=== PATIENT | female | born 1950 | race Caucasian/White ===

== ENCOUNTER → 2018-09-06 | Outpatient (CLI) | payer MEDICARE, BC ==
[2018-09-07 02:42] LABS: Anion Gap 5.4 mmol/L (4.00-12.00); Carbon Dioxide 30.6 mmol/L (21.6-31.8); Magnesium 1.9 mg/dL (1.5-2.4); Potassium 5.4 mmol/L (3.5-5.5)
== END | disposition home or self-care (01) ==
LOC: LABWHC1 15:32
PROVIDERS: ATTEND Internal Medicine Cardiovascular Disease
DX: I48.3 Typical atrial flutter (principal)
CPT/HCPCS: 36415; 80051; 82565; 83735; 84520

== ENCOUNTER 2021-07-03 01:06 | Inpatient (IN) | payer BC, MEDICARE ==
[2021-07-03] MEDS ORDERED: MORPHINE SULFATE 4 MG/ML SYRINGE IM STA (01:52)
--- NOTE | 2021-07-03 02:22 | XR ---
EXAMINATION TYPE: XR Hip LT and AP Pelvis DATE OF EXAM: 07/03/2021 COMPARISON: NONE HISTORY: Left hip pain TECHNIQUE: 4 views FINDINGS: Pelvic ring is intact. There is bilateral hip prosthesis. I see no fracture nor dislocation . Sacroiliac joints are intact. There is some bony reactive changes around the medial aspect of the l eft acetabular component. Proximal left femur is intact. IMPRESSION: No fracture seen. There is some mild reactive changes suggestive of developing protrusio the prosthetic left acetabulum.
[2021-07-03] MEDS ORDERED: HYDROmorphone 0.5 MG/0.5 ML SYRINGE IM STA (03:30)
[2021-07-03 05:21] LABS: Basophils # (A) 0.1 k/uL (0-0.2); Basophils % (A) 2 %; Eosinophils # (A) 0.2 k/uL (0-0.7); Eosinophils % (A) 3 %; HCT 41.6 % (34.0-46.0); HGB 14.2 gm/dL (11.4-16.0); Lymphocytes # (A) 3.6 k/uL (1.0-4.8); Lymphocytes % (A) 53 %; MCH 35.3 pg (25.0-35.0); MCV 103.8 fL (80.0-100.0); Macrocytosis Slight; Mean Platelet Volume 7.8; Monocytes # (A) 0.6 k/uL (0-1.0); Monocytes % (A) 9 %; Neutrophils # (A) 2.1 k/uL (1.3-7.7); Neutrophils % (A) 30 %; Platelet Count 319 k/uL (150-450); RBC 4.01 m/uL (3.80-5.40); WBC 6.8 k/uL (3.8-10.6)
[2021-07-03 05:37] LABS: African American GFR (CKD) >90 (>60 ml/min/1.73 sqM); Anion Gap 7 mmol/L; Blood Urea Nitrogen 11 mg/dL (7-17); C Reactive Protein <0.5 mg/dL (<1.0); Calcium 9.4 mg/dL (8.4-10.2); Carbon Dioxide 28 mmol/L (22-30); Chloride 102 mmol/L (98-107); Glucose 116 mg/dL (74-99); Non-African American GFR(CKD) >90 (>60 ml/min/1.73 sqM); Potassium 4.3 mmol/L (3.5-5.1); Sodium 137 mmol/L (137-145)
[2021-07-03] MEDS ORDERED: ACETAMINOPHEN TAB 325 MG TAB PO PRN (06:32)
[2021-07-03] MEDS ORDERED: NALOXONE 0.4 MG/ML 1 ML VIAL IV PRN (06:32)
[2021-07-03] MEDS ORDERED: HYDROmorphone 0.5 MG/0.5 ML SYRINGE IVP PRN (06:32)
--- NOTE | 2021-07-03 07:41 | ED ---
Lower Extremity Injury HPI - General Chief Complaint: Extremity Injury, Lower Stated Complaint: Left hip pain Time Seen by Provider: 07/03/21 01:10 Source: patient Mode of arrival: wheelchair Limitations: no limitations - History of Present Illness Initial Comments: this patient is 71-year-old woman who presents to be evaluated for left hip pain. She indicates pain over the lateral aspect and also the anterior toward the groin. She states that the pain is severe when she attempts to stand or ambulate. When she is lying the pain is barely notable. She states she has had previous hip replacement but that her orthopedic surgeon has retired now. Patient does not recall having a fall or other injury. No pain into the abdomen MD Complaint: hip injury -: hour(s) Injury: Hip: Left Place: home Severity: moderate Improves With: immobilization, rest Worsens With: weight bearing, movement - Related Data Home Medications Medication Instructions Recorded Confirmed ALPRAZolam [Xanax] 0.25 mg PO BID PRN 07/03/21 07/03/21 Acetaminophen-Codeine 300-30mg 1 tab PO Q6H PRN 07/03/21 07/03/21 [Tylenol w/codeine #3] Aspirin EC [Ecotrin Low Dose] 81 mg PO DAILY 07/03/21 07/03/21 Atorvastatin Calcium [Lipitor] 10 mg PO DAILY 07/03/21 07/03/21 Cyclobenzaprine [Flexeril] 10 mg PO BID PRN 07/03/21 07/03/21 Ferrous Sulfate [Iron (65 MG 325 mg PO DAILY 07/03/21 07/03/21 Elemental)] Gemfibrozil [Lopid] 600 mg PO AC-BID 07/03/21 07/03/21 Levothyroxine Sodium [Synthroid] 125 mcg PO DAILY 07/03/21 07/03/21 Losartan [Cozaar] 50 mg PO DAILY 07/03/21 07/03/21 Metoprolol Succinate (ER) [Toprol 50 mg PO DAILY 07/03/21 07/03/21 XL] Omeprazole [PriLOSEC] 20 mg PO DAILY 07/03/21 07/03/21 Sodium Bicarbonate Tab 650 mg PO BID 07/03/21 07/03/21 Tocilizumab [Actemra] 162 mg SQ Q14D 07/03/21 07/03/21 sulfaSALAzine [Sulfasalazine] 1,000 mg PO BID 07/03/21 07/03/21 Previous Rx's Medication Instructions Recorded predniSONE 5 mg PO DAILY #0 07/05/21 predniSONE [Deltasone] 20 mg PO DAILY #11 tab 07/05/21 Allergies Allergy/AdvReac Type Severity Reaction Status Date / Time No Known Allergies Allergy Verified 07/03/21 07:07 Review of Systems ROS Statement: Those systems with pertinent positive or pertinent negative responses have been documented in the HPI. ROS Other: All systems not noted in ROS Statement are negative. Constitutional: Denies: fever, chills, weakness Respiratory: Denies: cough, dyspnea Cardiovascular: Denies: chest pain, palpitations, edema Gastrointestinal: Denies: abdominal pain, vomiting, diarrhea, constipation Genitourinary: Denies: dysuria, frequency, hematuria Musculoskeletal: Reports: as per HPI, arthralgia. Denies: back pain, myalgia Skin: Denies: lesions Neurological: Denies: headache, weakness, numbness Past Medical History - Past Family History Mother Family Medical History: Cancer Additional Family Medical History / Comment(s): breast cancer with mets to the brain Father Family Medical History: Congestive Heart Failure (CHF), Myocardial Infarction ([place]) General Exam Limitations: no limitations General appearance: alert, in no apparent distress Head exam: Present: atraumatic, normocephalic Eye exam: Present: normal appearance. Absent: scleral icterus, conjunctival injection Neck exam: Present: normal inspection Respiratory exam: Present: normal lung sounds bilaterally. Absent: respiratory distress, wheezes, rales, rhonchi, stridor Cardiovascular Exam: Present: regular rate, normal rhythm, normal heart sounds. Absent: systolic murmur, diastolic murmur, rubs, gallop GI/Abdominal exam: Present: soft. Absent: distended, tenderness, guarding, rebound, rigid, mass Extremities exam: Present: normal inspection, full ROM, tenderness, normal c apillary refill. Absent: pedal edema, calf tenderness Left Hip exam: Present: full ROM, tenderness (tenderness over the lateral). Absent: swelling, abrasion, laceration, ecchymosis, deformity, crepitus, dislocation, erythema, external rotation, internal rotation Upper Leg exam: Present: normal inspection, full ROM. Absent: tenderness, swell ing Knee exam: Present: normal inspection, full ROM. Absent: tenderness, swelling Lower Leg exam: Present: normal inspection, full ROM. Absent: tenderness, swelling Ankle exam: Present: normal inspection, full ROM. Absent: tenderness, swelling Neurovascular tendon exam: Present: no vascular compromise. Absent: pulse deficit, abnormal cap refill, motor deficit, sensory deficit Back exam: Present: normal inspection. Absent: CVA tenderness (R), CVA tenderness (L) Neurological exam: Present: alert. Absent: motor sensory deficit Skin exam: Present: warm, dry, intact, normal color. Absent: rash Course Vital Signs 07/03/21 07/03/21 07/03/21 01:09 03:50 07:23 Temperature 98.2 F 98.4 F Pulse Rate 96 78 77 Respiratory 18 18 16 Rate Blood Pressure 152/81 120/78 118/69 O2 Sat by Pulse 94 L 96 95 Oximetry 07/03/21 07/03/21 10:25 11:30 Temperature Pulse Rate 78 87 Respiratory 18 18 Rate Blood Pressure 134/75 131/75 O2 Sat by Pulse 95 95 Oximetry Medical Decision Making - Medical Decision Making this patient is 71-year-old woman with left hip pain. She does not recall injury. The patient is not able to bear weight or ambulate was in the department. She does have good range of motion with passive range of motion of the hip. The patient is sent for x-ray which reveals some prominence of the hardware. In light of this will admit patient with orthopedic consult - Lab Data Result diagrams: 07/03/21 05:06 07/03/21 05:06 Lab Results 07/03/21 07/03/21 07/03/21 Range/Units 05:06 05:06 07:25 WBC 6.8 (3.8-10.6) k/uL RBC 4.01 (3.80-5.40) m/uL Hgb 14.2 (11.4-16.0) gm/dL Hct 41.6 (34.0-46.0) % MCV 103.8 H (80.0-100.0) fL MCH 35.3 H (25.0-35.0) pg MCHC 34.0 (31.0-37.0) g/dL RDW 13.0 (11.5-15.5) % Plt Count 319 (150-450) k/uL MPV 7.8 Neutrophils % 30 % Lymphocytes % 53 % Monocytes % 9 % Eosinophils % 3 % Basophils % 2 % Neutrophils # 2.1 (1.3-7.7) k/uL Lymphocytes # 3.6 (1.0-4.8) k/uL Monocytes # 0.6 (0-1.0) k/uL Eosinophils # 0.2 (0-0.7) k/uL Basophils # 0.1 (0-0.2) k/uL Macrocytosis Slight Sodium 137 (137-145) mmol/L Potassium 4.3 (3.5-5.1) mmol/L Chloride 102 (98-107) mmol/L Carbon Dioxide 28 (22-30) mmol/L Anion Gap 7 mmol/L BUN 11 (7-17) mg/dL Creatinine 0.56 (0.52-1.04) mg/dL Est GFR (CKD-EPI)AfAm >90 (>60 ml/min/1.73 sqM) Est GFR (CKD-EPI)NonAf >90 (>60 ml/min/1.73 sqM) Glucose 116 H (74-99) mg/dL Calcium 9.4 (8.4-10.2) mg/dL C-Reactive Protein <0.5 (<1.0) mg/dL Coronavirus (PCR) Not Detected (Not Detectd) Disposition Clinical Impression: Hip pain Disposition: ADMITTED IP TO THIS HOSP Condition: Good Is patient prescribed a controlled substance at d/c from ED?: No
[2021-07-03] MEDS: MORPHINE SULFATE 4 MG/ML SYRINGE IV PRN ×3 (08:22→20:33)
[2021-07-03] MEDS ORDERED: CYCLOBENZAPRINE 10 MG TAB PO PRN (10:48)
[2021-07-03] MEDS ORDERED: Acetaminophen-Codeine 300-30mg TAB PO PRN (10:48)
[2021-07-03] MEDS ORDERED: ALPRAZolam 0.25 MG TAB PO PRN (10:48)
[2021-07-03] MEDS: LOSARTAN 50 MG TAB PO SCH (11:33)
[2021-07-03] MEDS: METOPROLOL SUCCINATE (ER) 50 MG TAB.ER.24H PO SCH (11:33)
[2021-07-03] MEDS: predniSONE 5 MG TAB PO SCH (11:33)
[2021-07-03] MEDS: sulfaSALAzine 500 MG TAB PO SCH ×2 (11:34→20:29)
--- NOTE | 2021-07-03 12:50 | P.HPIM ---
History of Present Illness H&P Date: 07/03/21 Chief Complaint: Severe left hip pain, debility, possible malfunction of the hardware left t HISTORY OF PRESENT ILLNESS 70-year-old female one of my office patient with known for over 15 years with past medical history of rheumatoid arthritis, hypertension, hyperlipidemia, hypothyroidism, chronic pain syndrome and chronic anemia who has not been in the hospital and long time had multiple orthopedic surgeon the past including bilateral total knee arthroplasty bilateral total hip arthroplasty. She had her left total hip done years ago with Dr. Melvin Nguyen orthopedic surgeon to retired from [employer] and [facility] [place] last 3 years. She has been doing well all along until yesterday late afternoon when developed to have severe debilitated not been able to move her leg are present any pressure on it. Patient family ended up coming to help her not been able to move or put pressure on the hip with no indication of trauma ended up calling 911 and patient was transported to the hospital via EMS. Her plain x-ray showed no fracture but mild reactive changes suggestive of developing protrusion of the prostatic left acetabulum. With the debility she had patient will be admitted will be seen orthopedic see if there is any malfunction of the hardware if need to be going for revision arthroplasty. Also patient is known to have advanced rheumatoid arthritis has been on immunosuppressive management along with prednisone for long time she seen her claim approver on regular basis. Patient does Actemra beside prednisone 5 mg daily. Patient had lost her this last year 4 advance COPD and leukemia has been living alone able to manage on her own minimum help with her family member. REVIEW OF SYSTEMS Constitutional: No fever, no chills, no night sweats. No weight change. Generalized fatigue and tiredness with no fever or chills. EENT: No headache. No blurred vision or double vision, no loss of vision. No loss of Hearing, no ringing in the ears, no dizziness. No nasal drainage or congestion. No epistaxis. No sore throat. Lungs: No shortness of breath, cough, no sputum production. No wheezing. Cardiovascular: No chest pain, no lower extremity edema. No palpitations. No paroxysmal nocturnal dyspnea. No orthopnea. No lightheadedness or dizziness. No syncopal episodes. Abdominal: No abdominal pain. No nausea, vomiting. No diarrhea. No constipation. No bloody or tarry stools.. No loss of appetite. Genitourinary: Mild frequency and urgency with no retention. Musculoskeletal: Positive myalgia and arthralgia with significant pain and discomfort all over her joint specially the hands and shoulders. Integumentary: No wounds, no lesions. No rash or pruritus. No unusual bruisi ng. No change in hair or nails. Neurologic: No aphasia. No facial droop. No change in mentation. No head injury. No headache. No paralysis. No paresthesia. Psychiatric: No depression. No anxiety. No mood swings. Endocrine: No abnormal blood sugars. No weight change. No excessive sweating or thirst. No cold intolerance. SOCIAL HISTORY She smoked for a few years only half pack a day she quit over 30 years ago, no alcohol abuse, no use of marijuana, patient does not use any oxygen or updraft treatment she walk with a cane no walker. FAMILY HISTORY She has 4 children are all living and well. Had 1 brother who had complication of MRSA by after surgery. She has one sister is living and well. Her mother age 47 from complicated breast cancer, her dad age 84 from CHF PHYSICAL EXAMINATION Gen: This is a 71-year-old laying in bed comfortably does not look in any respiratory distress. HEENT: Head is atraumatic, normocephalic. Pupils equal, round. Sclerae is anicteric. NECK: Supple. No JVD. No lymphadenopathy. No thyromegaly. LUNGS: Clear to auscultation. No wheezes or rhonchi. No intercostal retractions. HEART: Regular rate and rhythm. Positive S3 positive soft systolic murmur at the apex. ABDOMEN: Soft. Bowel sounds are present. No masses. No tenderness. EXTREMITIES: Multiple arthralgia and deformity from rheumatoid arthritis in majority of her joint specially both hands and elbows. Patient had scar tissue over both knees and hips from total knees and total hips arthroplasty, the left hip had significant discomfort in the inner part of the groin of the lateral side with no major findings infection redness or warmness she is not able to move her hip or turn it side way whatsoever at this point because of the severe pain also not been able to put any pressure 1 attempt to stand drop. NEUROLOGICAL: Patient is awake, alert and oriented x3. Cranial nerves 2 through 12 are grossly intact. ASSESSMENT AND PLAN 1. Severe left hip pain with possible malfunction of the hardware after many years of left total hip arthroplasty, not quite sure what happened most likely patient had some sort of trauma early without her recent memory of having any injury. Patient need to see orthopedic also need a CAT scan of the hip for better diagnostic method there is no fracture was found at the time. 2. Debility with not been able to ambulate and walk with the severity of her left hip pain try to treat underlying disease consult orthopedic and PTOT gradu ally increase activity if clear by orthopedics. 3. Advanced rheumatoid arthritis: Patient has been on prednisone and Actemra, we'll continue prednisone but hold her immunosuppressive agent at this point. 4. Hypertension: Resume losartan 50 mg a day along with metoprolol succinate 50 mg daily. 5. Hyperlipidemia: Continue on atorvastatin 10 mg a day has been doing very well with it so far. 6. Hypothyroidism: Continue patient on levothyroxine 125 g daily. 7. Mild anemia: Has been on iron supplement along with multivitamins. 8. History of colitis: Patient has been on sulfasalazine 1000 g twice a day with good result so far. 9. Severe GERD and large hiatal hernia: Has been on pantoprazole 40 mg a day. 10. DVT prophylaxis: Knee-high JULIA hose and Venodyne boots can use heparin rutledge bcutaneous. 11. COVID-19 testing was negative Patient will be admitted to the hospital for a minimum of 2 night stay. Medications and Allergies Home Medications Medication Instructions Recorded Confirmed Type ALPRAZolam [Xanax] 0.25 mg PO BID PRN 07/03/21 07/03/21 History Acetaminophen-Codeine 300-30mg 1 tab PO Q6H PRN 07/03/21 07/03/21 History [Tylenol w/codeine #3] Aspirin EC [Ecotrin Low Dose] 81 mg PO DAILY 07/03/21 07/03/21 History Atorvastatin Calcium [Lipitor] 10 mg PO DAILY 07/03/21 07/03/21 History Cyclobenzaprine [Flexeril] 10 mg PO BID PRN 07/03/21 07/03/21 History Ferrous Sulfate [Feosol] 325 mg PO DAILY 07/03/21 07/03/21 History Gemfibrozil [Lopid] 600 mg PO AC-BID 07/03/21 07/03/21 History Levothyroxine Sodium [Synthroid] 125 mcg PO DAILY 07/03/21 07/03/21 History Losartan [Cozaar] 50 mg PO DAILY 07/03/21 07/03/21 History Metoprolol Succinate (ER) [Toprol 50 mg PO DAILY 07/03/21 07/03/21 History Xl] Omeprazole [PriLOSEC] 20 mg PO DAILY 07/03/21 07/03/21 History Sodium Bicarbonate Tab 650 mg PO BID 07/03/21 07/03/21 History Tocilizumab [Actemra] 162 mg SQ Q14D 07/03/21 07/03/21 History predniSONE 5 mg PO DAILY 07/03/21 07/03/21 History sulfaSALAzine [Sulfasalazine] 1,000 mg PO BID 07/03/21 07/03/21 History Allergies Allergy/AdvReac Type Severity Reaction Status Date / Time No Known Allergies Allergy Verified 07/03/21 07:07 Physical Exam Vitals: Vital Signs Temp Pulse Resp BP Pulse Ox 07/03/21 11:30 87 18 131/75 95 07/03/21 10:25 78 18 134/75 95 07/03/21 07:23 98.4 F 77 16 118/69 95 07/03/21 03:50 78 18 120/78 96 07/03/21 01:09 98.2 F 96 18 152/81 94 L Intake and Output 07/02/21 07/03/21 07/03/21 22:59 06:59 14:59 Other: Weight 79.379 kg Results CBC & Chem 7: 07/03/21 05:06 07/03/21 05:06 Labs: Abnormal Lab Results - Last 24 Hours (Table) 07/03/21 07/03/21 Range/Units 05:06 05:06 MCV 103.8 H (80.0-100.0) fL MCH 35.3 H (25.0-35.0) pg Glucose 116 H (74-99) mg/dL
[2021-07-03] MEDS: SODIUM BICARBONATE TAB 650 MG TAB PO SCH (20:29)
[2021-07-04] MEDS: MORPHINE SULFATE 4 MG/ML SYRINGE IV PRN ×4 (01:12→21:21)
[2021-07-04] MEDS: LEVOTHYROXINE 125 MCG TAB PO SCH (05:23)
[2021-07-04] MEDS: ATORVASTATIN 10 MG TAB PO SCH (07:53)
[2021-07-04] MEDS: predniSONE 5 MG TAB PO SCH (07:53)
[2021-07-04] MEDS: METOPROLOL SUCCINATE (ER) 50 MG TAB.ER.24H PO SCH (07:53)
[2021-07-04] MEDS: sulfaSALAzine 500 MG TAB PO SCH ×2 (07:54→21:24)
[2021-07-04] MEDS: FERROUS SULFATE 325 MG TAB PO SCH (07:54)
[2021-07-04] MEDS: PANTOPRAZOLE 40 MG TABLET PO SCH (07:54)
[2021-07-04] MEDS: ASPIRIN 81 MG PO SCH (07:54)
[2021-07-04] MEDS: SODIUM BICARBONATE TAB 650 MG TAB PO SCH ×2 (07:57→21:21)
[2021-07-04] MEDS: LOSARTAN 50 MG TAB PO SCH (07:57)
[2021-07-04] MEDS ORDERED: RX INFO: IV CONTRAST WAS GIVEN 1 EACH MISC MISCELLANE PRN (09:50)
--- NOTE | 2021-07-04 11:31 | CT ---
EXAMINATION TYPE: CT hip LT w con DATE OF EXAM: 07/04/2021 COMPARISON: none HISTORY: Hardware malfunction CT DLP: 606.7 mGycm Automated exposure control for dose reduction was used. CONTRAST: Performed with IV Contrast, patient injected with 100 mL of Isovue 300. FINDINGS: Total left hip arthroplasty is in place with acetabular and femoral components appearing well seated. Artifact limits portions of the study. There is no evidence for periprosthetic loosening or infectio n. There is no evidence for fracture. No abnormal fluid collection is seen. Bony structures are intac t. IMPRESSION: UNREMARKABLE APPEARING LEFT TOTAL HIP PROSTHESIS.
--- NOTE | 2021-07-04 12:07 | P.PN ---
Subjective Progress Note Date: 07/04/21 HISTORY OF PRESENT ILLNESS 71-year-old female one of my office patient with known for over 15 years with past medical history of rheumatoid arthritis, hypertension, hyperlipidemia, hypothyroidism, chronic pain syndrome and chronic anemia who has not been in the hospital and long time had multiple orthopedic surgeon the past including bilateral total knee arthroplasty bilateral total hip arthroplasty. She had her left total hip done years ago with Dr. Melvin Nguyen orthopedic surgeon to retired from [employer] [facility] [employer] [facility] [employer] and [facility] [place] last 3 years. She has been doing well all along until yesterday late afternoon when developed to have severe debilitated not been able to move her leg are present any pressure on it. Patient family ended up coming to help her not been able to move or put pressure on the hip with no indication of trauma ended up calling 911 and patient was transported to the hospital via EMS. Her plain x-ray showed no fracture but mild reactive changes suggestive of developing protrusion of the prostatic left acetabulum. With the debility she had patient will be admitted will be seen orthopedic see if there is any malfunction of the hardware if need to be going for revision arthroplasty. Also patient is known to have advanced rheumatoid arthritis has been on immunosuppressive management along with prednisone for long time she seen her photographer news on regular basis. Patient does Actemra beside prednisone 5 mg daily. Patient had lost her this last year 4 advance COPD and leukemia has been living alone able to manage on her own minimum help with her family member. 07/04: Patient is seen today on the [facility]/Med-surg floor. She has been afebrile, HR 85, BP 115/54, PO 93% on room air. CAT scan of the left hip revealed unremarkable appearing left total hip prosthesis. Consult with orthopedics is pending. Patient does state that she has the name of the orthopedic doctor that she was told to follow-up with I Dr. Perez. Await orthopedic consultation and recommendations. Patient continues to have pain to the left hip. REVIEW OF SYSTEMS Constitutional: No fever, no chills, no night sweats. No weight change. Generalized fatigue and tiredness with no fever or chills. EENT: No headache. No blurred vision or double vision, no loss of vision. No loss of Hearing, no ringing in the ears, no dizziness. No nasal drainage or congestion. No epistaxis. No sore throat. Lungs: No shortness of breath, cough, no sputum production. No wheezing. Cardiovascular: No chest pain, no lower extremity edema. No palpitations. No paroxysmal nocturnal dyspnea. No orthopnea. No lightheadedness or dizziness. No syncopal episodes. Abdominal: No abdominal pain. No nausea, vomiting. No diarrhea. No constipation. No bloody or tarry stools.. No loss of appetite. Genitourinary: Mild frequency and urgency with no retention. Musculoskeletal: Positive myalgia and arthralgia with significant pain and discomfort all over her joint specially the hands and shoulders. Left hip pain Integumentary: No wounds, no lesions. No rash or pruritus. No unusual bruising. No change in hair or nails. Neurologic: No aphasia. No facial droop. No change in mentation. No head injury. No headache. No paralysis. No paresthesia. Psychiatric: No depression. No anxiety. No mood swings. Endocrine: No abnormal blood sugars. No weight change. No excessive sweating or thirst. No cold intolerance. PHYSICAL EXAMINATION Gen: This is a 71-year-old laying in bed comfortably does not look in any re spiratory distress. HEENT: Head is atraumatic, normocephalic. Pupils equal, round. Sclerae is anicte mercedes. NECK: Supple. No JVD. No lymphadenopathy. No thyromegaly. LUNGS: Clear to auscultation. No wheezes or rhonchi. No intercostal retractions. HEART: Regular rate and rhythm. Positive S3 positive soft systolic murmur at the apex. ABDOMEN: Soft. Bowel sounds are present. No masses. No tenderness. EXTREMITIES: Multiple arthralgia and deformity from rheumatoid arthritis in majority of her joint specially both hands and elbows. Patient had scar tissue over both knees and hips from total knees and total hips arthroplasty, the left hip had significant discomfort in the inner part of the groin of the lateral side, she is not able to move her hip or turn it side way whatsoever at this point because of the severe pain also not been able to put any pressure 1 attempt to stand drop. NEUROLOGICAL: Patient is awake, alert and oriented x3. Cranial nerves 2 through 12 are grossly intact. ASSESSMENT AND PLAN 1. Severe left hip pain with possible malfunction of the hardware after many years of left total hip arthroplasty, not quite sure what happened most likely patient had some sort of trauma early without her recent memory of having any injury. Patient need to see orthopedic, CAT scan of the hip revealed no unremarkable left hip stasis. 2. Debility with not been able to ambulate and walk with the severity of her left hip pain try to treat underlying disease consult orthopedic and PTOT gradually increase activity if clear by orthopedics. 3. Advanced rheumatoid arthritis: Patient has been on prednisone and Actemra, we'll continue prednisone but hold her immunosuppressive agent at this point. 4. Hypertension: Resume losartan 50 mg a day along with metoprolol succinate 50 mg daily. 5. Hyperlipidemia: Continue on atorvastatin 10 mg a day has been doing very well with it so far. 6. Hypothyroidism: Continue patient on levothyroxine 125 g daily. 7. Mild anemia: Has been on iron supplement along with multivitamins. 8. History of colitis: Patient has been on sulfasalazine 1000 g twice a day with good result so far. 9. Severe GERD and large hiatal hernia: Has been on pantoprazole 40 mg a day. 10. DVT prophylaxis: Knee-high JULIA hose and Venodyne boots can use heparin subcutaneous. 11. COVID-19 testing was negative DISCHARGE PLAN TBD Impression and plan of care have been directed as dictated by the signing physician. Marcelle Mcfarland nurse practitioner acting as scribe for signing physician. Objective - Vital Signs Vital signs: Vital Signs Temp 98.2 F 07/04/21 01:14 Pulse 85 07/04/21 01:14 Resp 14 07/04/21 01:14 BP 115/54 07/04/21 01:14 Pulse Ox 93 L 07/04/21 01:14 Intake & Output 07/03/21 07/04/21 07/04/21 18:59 06:59 18:59 Intake Total 240 Output Total 200 Balance 40 Weight 79.379 kg Intake: Oral 240 Output: Urine 200 Other: # Voids 0 1 # Bowel Movements 0 - Labs CBC & Chem 7: 07/03/21 05:06 07/03/21 05:06
[2021-07-04] MEDS ORDERED: predniSONE 5 MG TAB PO STA (12:39)
[2021-07-04 22:45] VITALS: RESP 16
--- NOTE | 2021-07-04 23:43 | P.CNOR ---
History of Present Illness - [facility] Consult date: 07/04/21 Consult reason: joint pain History of present illness: Patient is a pleasant 71 year old female seen at bedside this morning in consultation for left hip pain. She is s/p left total hip arthroplasty done elsewhere in 2019. She is also s/p lumbar fusion and subsequent revision several years ago done elsewhere. She states that she developed pain at the outside of her left hip about 4 days ago without accident or injury. She states that it is tender touch or lay on her left hip. She denies numbness, tingling or radicular symptoms. She denies redness, fever or chills. She has no other complaints Review of Systems All systems: negative Constitutional: Denies chills, Denies fever Eyes: denies blurred vision, denies pain Ears, nose, mouth and throat: Denies headache, Denies sore throat Cardiovascular: Denies chest pain, Denies shortness of breath Respiratory: Denies cough Gastrointestinal: Denies abdominal pain, Denies diarrhea, Denies nausea, Denies vomiting Genitourinary: Denies dysuria, Denies hematuria Musculoskeletal: Denies myalgias Integumentary: Denies pruritus, Denies rash Neurological: Denies numbness, Denies weakness Psychiatric: Denies anxiety, Denies depression Endocrine: Denies fatigue, Denies weight change Past Medical History Past Medical History: Coronary Artery Disease (CAD), GERD/Reflux, Hyperlipidem ia, Hypertension, Osteoarthritis (OA), Thyroid Disorder Additional Past Medical History / Comment(s): anemia ra History of Any Multi-Drug Resistant Organisms: None Reported Past Surgical History: Joint Replacement, Orthopedic Surgery Additional Past Surgical History / Comment(s): tressa hips/knees replacements spinal fusion Past Anesthesia/Blood Transfusion Reactions: No Reported Reaction Past Psychological History: No Psychological Hx Reported Smoking Status: Former smoker Past Alcohol Use History: Rare Past Drug Use History: None Reported - Past Family History Mother Family Medical History: Cancer Additional Family Medical History / Comment(s): breast cancer with mets to the brain Father Family Medical History: Congestive Heart Failure (CHF), Myocardial Infarction ([place]) Medications and Allergies Home Medications Medication Instructions Recorded Confirmed Type ALPRAZolam [Xanax] 0.25 mg PO BID PRN 07/03/21 07/03/21 History Acetaminophen-Codeine 300-30mg 1 tab PO Q6H PRN 07/03/21 07/03/21 History [Tylenol w/codeine #3] Aspirin EC [Ecotrin Low Dose] 81 mg PO DAILY 07/03/21 07/03/21 History Atorvastatin Calcium [Lipitor] 10 mg PO DAILY 07/03/21 07/03/21 History Cyclobenzaprine [Flexeril] 10 mg PO BID PRN 07/03/21 07/03/21 History Ferrous Sulfate [Feosol] 325 mg PO DAILY 07/03/21 07/03/21 History Gemfibrozil [Lopid] 600 mg PO AC-BID 07/03/21 07/03/21 History Levothyroxine Sodium [Synthroid] 125 mcg PO DAILY 07/03/21 07/03/21 History Losartan [Cozaar] 50 mg PO DAILY 07/03/21 07/03/21 History Metoprolol Succinate (ER) [Toprol 50 mg PO DAILY 07/03/21 07/03/21 History Xl] Omeprazole [PriLOSEC] 20 mg PO DAILY 07/03/21 07/03/21 History Sodium Bicarbonate Tab 650 mg PO BID 07/03/21 07/03/21 History Tocilizumab [Actemra] 162 mg SQ Q14D 07/03/21 07/03/21 History predniSONE 5 mg PO DAILY 07/03/21 07/03/21 History sulfaSALAzine [Sulfasalazine] 1,000 mg PO BID 07/03/21 07/03/21 History Allergies Allergy/AdvReac Type Severity Reaction Status Date / Time No Known Allergies Allergy Verified 07/03/21 07:07 Physical Examination Inspection shows benign well healed surgical wound at left hip. No erythema, echymoses, edema or deformity is present. She is tender to touch at the greater trochanteric bursa and lateral hip. It is not hot to touch. There is no fluctuance or fluid collection. There is pain at lateral left hip with ROM including adduction, internal and external rotation which is all full. There is minimal to no groin pain with hip flexion, extension IR or ER. Motor and sensation is intact throughout the left lower extremity. Calf is soft and nontender. 2+ dorsalis pedis pulse and less than 2 sec cap refill is present . Results Xray and CT of left hip show components intact and well seated. There is no loosening, fracture or fluid collection seen - Labs Labs: H & H 07/03/21 Range/Units 05:06 Hgb 14.2 (11.4-16.0) gm/dL Hct 41.6 (34.0-46.0) % Result Diagrams: 07/03/21 05:06 07/03/21 05:06 Assessment and Plan (1) Hip pain Narrative/Plan: No immediate surgical intervention is planned. Likely diagnosis is GT bursitis/IT band inflammation. Recommend ice to lateral hip 30 mins 3 times per day. Avoid lying on hip. Consider short term increase of corticosteroids which we will defer to primary team. Will follow and if no improvement consider GT Bursa injection vs further imaging. Thank you. Current Visit: Yes Status: Acute Priority: Medium Code(s): M25.559 - PAIN IN UNSPECIFIED HIP SNOMED Code(s): 93038392 Time with Patient: Less than 30
[2021-07-05] MEDS: MORPHINE SULFATE 4 MG/ML SYRINGE IV PRN ×3 (01:59→10:11)
[2021-07-05] MEDS: LEVOTHYROXINE 125 MCG TAB PO SCH (05:47)
[2021-07-05 07:40] VITALS: BP 111/57; PULSE 86; TEMP 98.2
[2021-07-05] MEDS: ASPIRIN 81 MG PO SCH (07:45)
[2021-07-05] MEDS: METOPROLOL SUCCINATE (ER) 50 MG TAB.ER.24H PO SCH (07:45)
[2021-07-05] MEDS: sulfaSALAzine 500 MG TAB PO SCH (07:45)
[2021-07-05] MEDS: ATORVASTATIN 10 MG TAB PO SCH (07:46)
[2021-07-05] MEDS: SODIUM BICARBONATE TAB 650 MG TAB PO SCH (07:46)
[2021-07-05] MEDS: FERROUS SULFATE 325 MG TAB PO SCH (07:46)
[2021-07-05] MEDS: LOSARTAN 50 MG TAB PO SCH (07:46)
[2021-07-05] MEDS: PANTOPRAZOLE 40 MG TABLET PO SCH (07:46)
[2021-07-05] MEDS ORDERED: predniSONE 20 MG TAB PO SCH (09:00)
--- NOTE | 2021-07-05 09:15 | P.DS ---
Providers Date of admission: 07/04/21 14:42 Expected date of discharge: 07/05/21 Attending physician: Jesse Freire Consults: 07/03/21 06:33 Consult Physician Routine Consulting Provider: Chad Donis Consult Reason/Comments: Left hip pain Do you want consulting provider notified?: Yes Primary care physician: [facility] Course: HISTORY OF PRESENT ILLNESS 71-year-old female one of my office patient with known for over 15 years with past medical history of rheumatoid arthritis, hypertension, hyperlipidemia, hypothyroidism, chronic pain syndrome and chronic anemia who has not been in the hospital and long time had multiple orthopedic surgeon the past including bilateral total knee arthroplasty bilateral total hip arthroplasty. She had her left total hip done years ago with Dr. Melvin Nguyen orthopedic surgeon to retired from [employer] and [facility] [place] 3 years. She has been doing well all along until yesterday late afternoon when developed to have severe debilitated not been able to move her leg are present any pressure on it. Patient family ended up coming to help her not been able to move or put pressure on the hip with no indication of trauma ended up calling 911 and patient was transported to the hospital via EMS. Her plain x-ray showed no fracture but mild reactive changes suggestive of developing protrusion of the prostatic left acetabulum. With the debility she had patient will be admitted will be seen orthopedic see if there is any malfunction of the hardware if need to be going for revision arthroplasty. Also patient is known to have advanced rheumatoid arthritis has been on immunosuppressive management along with prednisone for long time she seen her agency operator on regular basis. Patient does Actemra beside prednisone 5 mg daily. Patient had lost her this last year 4 advance COPD and leukemia has been living alone able to manage on her own minimum help with her family member. 07/04: Patient is seen today on the OBV/Med-surg floor. She has been afebrile, HR 85, BP 115/54, PO 93% on room air. CAT scan of the left hip revealed unremarkable appearing left total hip prosthesis. Consult with orthopedics is pending. Patient does state that she has the name of the orthopedic doctor that she was told to follow-up with Vadim Perez. Await orthopedic consultation and recommendations. Patient continues to have pain to the left hip. 07/05: She was seen by orthopedics yesterday for bursitis and recommended increasing steroids which we increased her prednisone to 20 mg daily. She's been afebrile, heart rate 86, blood pressure 111/57, pulse ox 95% on room air. Therapies have recommended home with homecare and 24 hours supervision. import customer service manager has arranged for [facility] and patient's granddaughter staying with her at discharge. Patient is agreeable for discharge and will be sent home today in stable condition. ASSESSMENT AND PLAN 1. Severe left hip pain secondary to bursitis/IT band inflammation 2. Debility 3. Advanced rheumatoid arthritis 4. Hypertension 5. Hyperlipidemia 6. Hypothyroidism 7. Mild anemia of chronic disease 8. History of colitis 9. Severe GERD and large hiatal hernia 10. COVID-19 testing was negative DISCHARGE PLAN Home with [facility] Impression and plan of care have been directed as dictated by the signing physician. Marcelle Mcfarland nurse practitioner acting as scribe for signing physician. Patient Condition at Discharge: Good Plan - Discharge Summary Discharge Rx Participant: Yes New Discharge Prescriptions: New predniSONE [Deltasone] 20 mg PO DAILY #11 tab Continue Cyclobenzaprine [Flexeril] 10 mg PO BID PRN PRN Reason: Muscle Spasm sulfaSALAzine [Sulfasalazine] 1,000 mg PO BID Sodium Bicarbonate Tab 650 mg PO BID Omeprazole [PriLOSEC] 20 mg PO DAILY Losartan [Cozaar] 50 mg PO DAILY Atorvastatin Calcium [Lipitor] 10 mg PO DAILY Acetaminophen-Codeine 300-30mg [Tylenol w/codeine #3] 1 tab PO Q6H PRN PRN Reason: Pain predniSONE 5 mg PO DAILY #0 Aspirin EC [Ecotrin Low Dose] 81 mg PO DAILY Ferrous Sulfate [Iron (65 MG Elemental)] 325 mg PO DAILY Metoprolol Succinate (ER) [Toprol XL] 50 mg PO DAILY Levothyroxine Sodium [Synthroid] 125 mcg PO DAILY Gemfibrozil [Lopid] 600 mg PO AC-BID ALPRAZolam [Xanax] 0.25 mg PO BID PRN PRN Reason: Anxiety Tocilizumab [Actemra] 162 mg SQ Q14D Discharge Medication List ALPRAZolam [Xanax] 0.25 mg PO BID PRN 07/03/21 [History] Acetaminophen-Codeine 300-30mg [Tylenol w/codeine #3] 1 tab PO Q6H PRN 07/03/21 [History] Aspirin EC [Ecotrin Low Dose] 81 mg PO DAILY 07/03/21 [History] Atorvastatin Calcium [Lipitor] 10 mg PO DAILY 07/03/21 [History] Cyclobenzaprine [Flexeril] 10 mg PO BID PRN 07/03/21 [History] Ferrous Sulfate [Iron (65 MG Elemental)] 325 mg PO DAILY 07/03/21 [History] Gemfibrozil [Lopid] 600 mg PO AC-BID 07/03/21 [History] Levothyroxine Sodium [Synthroid] 125 mcg PO DAILY 07/03/21 [History] Losartan [Cozaar] 50 mg PO DAILY 07/03/21 [History] Metoprolol Succinate (ER) [Toprol XL] 50 mg PO DAILY 07/03/21 [History] Omeprazole [PriLOSEC] 20 mg PO DAILY 07/03/21 [History] Sodium Bicarbonate Tab 650 mg PO BID 07/03/21 [History] Tocilizumab [Actemra] 162 mg SQ Q14D 07/03/21 [History] sulfaSALAzine [Sulfasalazine] 1,000 mg PO BID 07/03/21 [History] predniSONE 5 mg PO DAILY #0 07/05/21 [Rx] predniSONE [Deltasone] 20 mg PO DAILY #11 tab 07/05/21 [Rx] Follow up Appointment(s)/Referral(s): Jesse Freire MD [Primary Care Provider] - 1 Week [facility], [NON-STAFF] - 1-2 Days (Home care will to set up schedule, Any questions, please call agency. ) Activity/Diet/Wound Care/Special Instructions: Ice to lateral hip 30 mins 3 times per day. Avoid lying on hip. Discharge Disposition: HOME WITH HOME HEALTH SERVICES
== END 2021-07-05 12:45 | disposition home health service (06) | DRG 558 ==
LOC: EC 01:06 → 6NMEDSUR 06:33 → OBSVTOIN 07-04 14:42
PROVIDERS: ADMIT Internal Medicine Geriatric Medicine; ATTEND Internal Medicine Geriatric Medicine
DX: M70.72 Other bursitis of hip, left hip (principal); D63.8 Anemia in other chronic diseases classified elsewhere; M06.9 Rheumatoid arthritis, unspecified; M76.32 Iliotibial band syndrome, left leg; Z20.822 Contact with and (suspected) exposure to COVID-19; G89.4 Chronic pain syndrome; I10 Essential (primary) hypertension; E03.9 Hypothyroidism, unspecified; E78.5 Hyperlipidemia, unspecified; K21.9 Gastro-esophageal reflux disease without esophagitis; I25.10 Atherosclerotic heart disease of native coronary artery without angina pectoris; K52.9 Noninfective gastroenteritis and colitis, unspecified; K44.9 Diaphragmatic hernia without obstruction or gangrene; M19.90 Unspecified osteoarthritis, unspecified site; R53.81 Other malaise; Z79.82 Long term (current) use of aspirin; Z79.890 Hormone replacement therapy; Z79.899 Other long term (current) drug therapy; Z60.2 Problems related to living alone; Z98.1 Arthrodesis status; Z96.643 Presence of artificial hip joint, bilateral; Z96.653 Presence of artificial knee joint, bilateral; Z87.891 Personal history of nicotine dependence; Z80.3 Family history of malignant neoplasm of breast; Z80.8 Family history of malignant neoplasm of other organs or systems; Z82.49 Family history of ischemic heart disease and other diseases of the circulatory system
CPT/HCPCS: 36415; 73502; 80048; 85025; 86140; 87635; 96372; 99285

== ENCOUNTER 2022-06-15 13:36 | Observation (INO) | payer BC, MEDICARE ==
[2022-06-15] MEDS ORDERED: LORazepam 2 MG/ML INJ IV STA ×2 (13:43→15:23)
[2022-06-15] MEDS ORDERED: HYDROmorphone 1 MG/ML 1 ML SYRINGE IVP STA ×2 (13:43→13:54)
--- NOTE | 2022-06-15 14:40 | ED ---
Lower Extremity Injury HPI - General Chief Complaint: Extremity Injury, Lower Stated Complaint: Hip dislocation Time Seen by Provider: 06/15/22 13:36 Source: patient, EMS, RN notes reviewed Mode of arrival: EMS Limitations: no limitations - History of Present Illness Initial Comments: 72-year-old female history of hip replacement surgery who states he bent over prior to arrival and her right hip became dislocated. This is a third time she states it happened she complains of a lot of pain. She was brought in by EMS. She did get a shot of 100 g of fentanyl with minimal relief. She denies any other injury she was able to crawl to a phone to call for assistance. She denies any head neck or back pain any other extremity injury. - Related Data Home Medications Medication Instructions Recorded Confirmed ALPRAZolam [Xanax] 0.25 mg PO BID PRN 07/03/21 07/03/21 Acetaminophen-Codeine 300-30mg 1 tab PO Q6H PRN 07/03/21 07/03/21 [Tylenol w/codeine #3] Aspirin EC [Ecotrin Low Dose] 81 mg PO DAILY 07/03/21 07/03/21 Atorvastatin Calcium [Lipitor] 10 mg PO DAILY 07/03/21 07/03/21 Cyclobenzaprine [Flexeril] 10 mg PO BID PRN 07/03/21 07/03/21 Ferrous Sulfate [Iron (65 MG 325 mg PO DAILY 07/03/21 07/03/21 Elemental)] Levothyroxine Sodium [Synthroid] 125 mcg PO DAILY 07/03/21 07/03/21 Losartan [Cozaar] 50 mg PO DAILY 07/03/21 07/03/21 Metoprolol Succinate (ER) [Toprol 50 mg PO DAILY 07/03/21 07/03/21 XL] Omeprazole [PriLOSEC] 20 mg PO DAILY 07/03/21 07/03/21 Sodium Bicarbonate Tab 650 mg PO BID 07/03/21 07/03/21 Tocilizumab [Actemra] 162 mg SQ Q14D 07/03/21 07/03/21 gemfibroziL [Lopid] 600 mg PO AC-BID 07/03/21 07/03/21 sulfaSALAzine [Sulfasalazine] 1,000 mg PO BID 07/03/21 07/03/21 Previous Rx's Medication Instructions Recorded predniSONE 5 mg PO DAILY #0 07/05/21 predniSONE [Deltasone] 20 mg PO DAILY #11 tab 07/05/21 Allergies Allergy/AdvReac Type Severity Reaction Status Date / Time No Known Allergies Allergy Verified 06/15/22 13:45 Review of Systems ROS Statement: Those systems with pertinent positive or pertinent negative responses have been documented in the HPI. ROS Other: All systems not noted in ROS Statement are negative. Past Medical History Past Medical History: Coronary Artery Disease (CAD), GERD/Reflux, Hyperlipidemia, Hypertension, Osteoarthritis (OA), Thyroid Disorder Additional Past Medical History / Comment(s): anemia ra History of Any Multi-Drug Resistant Organisms: None Reported Past Surgical History: Joint Replacement, Orthopedic Surgery Additional Past Surgical History / Comment(s): tressa hips/knees replacements spinal fusion Past Anesthesia/Blood Transfusion Reactions: No Reported Reaction Past Psychological History: No Psychological Hx Reported Smoking Status: Former smoker Past Alcohol Use History: Rare Past Drug Use History: None Reported - Past Family History Mother Family Medical History: Cancer Additional Family Medical History / Comment(s): breast cancer with mets to the brain Father Family Medical History: Congestive Heart Failure (CHF), Myocardial Infarction ([place]) General Exam Limitations: no limitations General appearance: alert, anxious, in distress Head exam: Present: atraumatic, normocephalic, normal inspection Eye exam: Present: normal appearance, PERRL, EOMI. Absent: scleral icterus, conjunctival injection, periorbital swelling ENT exam: Present: normal exam, mucous membranes moist Neck exam: Present: normal inspection. Absent: tenderness, meningismus, lymphadenopathy Respiratory exam: Present: normal lung sounds bilaterally. Absent: respiratory distress, wheezes, rales, rhonchi, stridor Cardiovascular Exam: Present: regular rate, normal rhythm, normal heart sounds. Absent: systolic murmur, diastolic murmur, rubs, gallop, clicks GI/Abdominal exam: Present: soft, normal bowel sounds. Absent: distended, tenderness, guarding, rebound, rigid Extremities exam: Present: tenderness, normal capillary refill, other (Evidence of rotation of the right had patient did come in on the left lateral decubitus positioning for comfort.). Absent: pedal edema, joint swelling, calf tenderness Back exam: Present: normal inspection Neurological exam: Present: alert, oriented X3, CN II-XII intact Psychiatric exam: Present: normal affect, normal mood Skin exam: Present: warm, dry, intact, normal color. Absent: rash Course Vital Signs 06/15/22 06/15/22 06/15/22 13:40 16:12 16:17 Temperature 98.5 F Pulse Rate 94 90 102 H Respiratory 16 16 12 Rate Blood Pressure 140/92 153/71 102/58 O2 Sat by Pulse 96 100 100 Oximetry 06/15/22 06/15/22 06/15/22 16:22 16:37 16:52 Temperature Pulse Rate 97 97 101 H Respiratory 12 16 16 Rate Blood Pressure 112/80 113/97 110/85 O2 Sat by Pulse 100 97 97 Oximetry Procedures - Orthopedic Joint Reduction Joint #1 Consent Obtained: verbal consent, emergent situation Joint Reduction Location: hip Analgesia: procedural sedation Shoulder Technique Used (if applicable): other (Captain Townsend) Post-Reduction Neuro Exam: intact Post-Reduction Vascular Exam: intact Post Reduction X-Ray Obtained: Yes (Reposition properly) Patient Tolerated Procedure: well - Procedural Sedation Procedural Sedation Start Time: 16:12 Procedural Sedation Stop Time: 16:22 ASA Class: II Mallampati Airway Score: 2 Preparation: monitoring engineer applied, pulse oximeter, capnometry used, supplemental O2 applied, reversal agents at bedside, suction/airway equipment at bedside, IV secured IV Propofol Dose (mgs): 80 Other Medications Used: Ativan 1 mg Complications: hypoventilation Interventions: oxygen applied, assist by BVM (Patient briefly needed assistance and breathing including a nasal airway this was short-lived the patient tolerated the procedure well otherwise) Medical Decision Making - Medical Decision Making I did discuss findings with patient family members as well as Dr. Rincon. Patient will be admitted for inpatient evaluation - Radiology Data Radiology results: report reviewed (Imaging reviewed as well as report subluxation of the prosthetic right hip), image reviewed Disposition Clinical Impression: Recurrent dislocation, right hip Disposition: ADMITTED IP TO THIS [facility] Condition: Stable Referrals: Jesse Freire MD [Primary Care Provider] - 1-2 days Decision Date: 06/15/22 Decision Time: 17:00
[2022-06-15] MEDS ORDERED: PROPOFOL 10 MG/ML 20 ML VIAL IV ONE (15:22)
--- NOTE | 2022-06-15 15:43 | XR ---
EXAMINATION TYPE: XR Hip RT and AP Pelvis DATE OF EXAM: 06/15/2022 COMPARISON: 07/03/2021 HISTORY: Right hip dislocation TECHNIQUE: 3 views FINDINGS: There is bilateral hip prosthesis. There is dislocation of the right femoral head prosthesi s posteriorly. No fracture seen. The pelvic ring is intact. IMPRESSION: Dislocation of the right hip prosthesis.
--- NOTE | 2022-06-15 16:53 | XR ---
EXAMINATION TYPE: XR Hip Limited RT DATE OF EXAM: 06/15/2022 COMPARISON: To the HISTORY: Post reduction TECHNIQUE: Lateral view FINDINGS: There is anatomic reduction of the right hip prosthesis. No fracture seen. IMPRESSION: Anatomic reduction.
[2022-06-15] MEDS ORDERED: ACETAMINOPHEN TAB 325 MG TAB PO PRN (17:28)
[2022-06-15] MEDS ORDERED: NALOXONE 0.4 MG/ML 1 ML VIAL IV PRN (17:28)
[2022-06-15] MEDS: SODIUM CHLORIDE 0.9% 1,000 ML IV SCH (17:47)
[2022-06-15] MEDS ORDERED: ALBUTEROL NEBULIZED 2.5 MG/3 ML INHALATION PRN (20:36)
[2022-06-15] MEDS ORDERED: CYCLOBENZAPRINE 10 MG TAB PO PRN (20:36)
[2022-06-15] MEDS ORDERED: ALPRAZolam 0.25 MG TAB PO PRN (20:36)
[2022-06-15] MEDS: SODIUM BICARBONATE TAB 650 MG TAB PO SCH (21:43)
[2022-06-15] MEDS: FENOFIBRATE 160 MG TAB PO SCH (21:43)
[2022-06-15] MEDS: sulfaSALAzine 500 MG TAB PO SCH (21:43)
[2022-06-15] MEDS: ALBUTEROL NEBULIZED 2.5 MG/3 ML INHALATION PRN (22:12)
[2022-06-16] MEDS: LEVOTHYROXINE 125 MCG TAB PO SCH (05:43)
[2022-06-16] MEDS: Acetaminophen-Codeine 300-30mg TAB PO PRN ×3 (05:45→17:15)
[2022-06-16] MEDS: ALBUTEROL NEBULIZED 2.5 MG/3 ML INHALATION PRN ×3 (07:16→15:08)
[2022-06-16] MEDS: LOSARTAN 50 MG TAB PO SCH ×2 (08:21→08:26)
[2022-06-16] MEDS: PANTOPRAZOLE 40 MG TABLET PO SCH (08:21)
[2022-06-16] MEDS: METOPROLOL SUCCINATE (ER) 50 MG TAB.ER.24H PO SCH ×2 (08:21→08:26)
[2022-06-16] MEDS: ATORVASTATIN 40 MG TAB PO SCH (08:21)
[2022-06-16] MEDS: predniSONE 10 MG TAB PO SCH (08:21)
[2022-06-16] MEDS: ASPIRIN 81 MG PO SCH (08:21)
[2022-06-16] MEDS: SODIUM CHLORIDE 0.9% 1,000 ML IV SCH ×2 (08:22→20:17)
[2022-06-16] MEDS: SODIUM BICARBONATE TAB 650 MG TAB PO SCH ×2 (08:23→20:15)
[2022-06-16] MEDS: sulfaSALAzine 500 MG TAB PO SCH ×2 (08:23→20:15)
[2022-06-16 10:27] LABS: Basophils # (A) 0.1 k/uL (0-0.2); Basophils % (A) 2 %; Eosinophils # (A) 0.1 k/uL (0-0.7); Eosinophils % (A) 3 %; HCT 40.1 % (34.0-46.0); HGB 12.6 gm/dL (11.4-16.0); Hypochromasia Slight; Lymphocytes # (A) 1.7 k/uL (1.0-4.8); Lymphocytes % (A) 36 %; MCH 33.2 pg (25.0-35.0); MCHC 31.4 g/dL (31.0-37.0); MCV 105.6 fL (80.0-100.0); Macrocytosis Moderate; Mean Platelet Volume 7.5; Monocytes # (A) 0.5 k/uL (0-1.0); Monocytes % (A) 10 %; Neutrophils # (A) 2.2 k/uL (1.3-7.7); Neutrophils % (A) 47 %; Platelet Count 281 k/uL (150-450); RDW 13.4 % (11.5-15.5); WBC 4.6 k/uL (3.8-10.6)
[2022-06-16 10:39] LABS: African American GFR (CKD) >90 (>60 ml/min/1.73 sqM); Anion Gap 6 mmol/L; Blood Urea Nitrogen 8 mg/dL (7-17); Calcium 8.4 mg/dL (8.4-10.2); Carbon Dioxide 28 mmol/L (22-30); Chloride 105 mmol/L (98-107); Glucose 161 mg/dL (74-99); Non-African American GFR(CKD) >90 (>60 ml/min/1.73 sqM); Potassium 4.4 mmol/L (3.5-5.1); Sodium 139 mmol/L (137-145)
--- NOTE | 2022-06-16 13:50 | P.HPIM ---
History of Present Illness H&P Date: 06/16/22 This is a 72 year female who follows with Dr. Dr. Freire, medical history significant for hypertension, hyperlipidemia, hypothyroidism, gastroesophageal reflux disease, coronary artery disease states she does have a cardiac stent, arthritis, spinal fusion, former smoker with rare alcohol use. She presents with history of hip replacement surgery and states that she had bent over prior to arrival and felt her right hip become dislocated. Patient states that this is the third time happening and she was in a lot of pain brought in by EMS. She was given fentanyl. Currently she is pain free. Denies chest pain, no nausea vomiting or diarrhea. No fever or chills. She does report having some intermi ttent shortness of breath and is scheduled to see Dr Valencia outpatient next Thursday for echocardiogram. She is admitted to orthopedic services, had hip pelvic x-ray completed on arrival showing dislocation of the right hip prosthesis. Follow-up x-ray showing anatomic reduction. Patient is afebrile admission, heart rate 80s, blood pressure is in the lower side at 95/55 this morning, 99% room air. Patient is receiving Tylenol 3 for pain management. She has received IV fluids overnight, she is also on valsartan daily which we will hold as well as Toprol-XL which was held for hypotension. Will check labs. REVIEW OF SYSTEMS: CONSTITUTIONAL: No fever, no malaise, no fatigue. HEENT: No recent visual problems or hearing problems. Denied any sore throat. CARDIOVASCULAR: No chest pain, orthopnea, PND, no palpitations, no syncope. PULMONARY: No shortness of breath, no cough, no hemoptysis. GASTROINTESTINAL: No diarrhea, no nausea, no vomiting, no abdominal pain. NEUROLOGICAL: No headaches, no weakness, no numbness. HEMATOLOGICAL: Denies any bleeding or petechiae. GENITOURINARY: Denies any burning micturition, frequency, or urgency. MUSCULOSKELETAL/RHEUMATOLOGICAL: Denies any joint pain, swelling, or any muscle pain. ENDOCRINE: Denies any polyuria or polydipsia. The rest of the 14-point review of systems is negative. PHYSICAL EXAMINATION: GENERAL: The patient is alert and oriented x3, not in any acute distress. Well developed, well nourished. HEENT: Pupils are round and equally reacting to light. EOMI. No scleral icterus. No conjunctival pallor. Normocephalic, atraumatic. No pharyngeal erythema. No thyromegaly. CARDIOVASCULAR: S1 and S2 present. Systolic murmur. PULMONARY: Chest is clear to auscultation, no wheezing or crackles. ABDOMEN: Soft, nontender, nondistended, normoactive bowel sounds. No palpable organomegaly. MUSCULOSKELETAL: No joint swelling or deformity. EXTREMITIES: No cyanosis, clubbing, or pedal edema. NEUROLOGICAL: Gross neurological examination did not reveal any focal deficits. SKIN: No rashes. Assessment and plan Assessment Right hip dislocation of prosthesis status post reduction with follow up xray confirming she is pending orthopedic evaluation History hypertension currently blood pressure in the 100s-90s systolic will hold losartan for now and check metabolic panel History rheumatoid arthritis patient is maintaned on oral prednisone daily Hypothyroidism History chronic anemia Hyperlipidemia Coronary artery disease History of spinal fusion Former smoker GI prophylaxis DVT prophylaxis Full code Plan Orthopedics ordered brace for patient Hold losartan Hold toprol xl give metoprolol 25 mg po daily starting now Check BMP CBC Discharge home most likely tomorrow Thank you for this consultation The impression and plan of care has been dictated by Carolyn Reddy Nurse Practitioner as directed. Dr. Regine MD I have performed a history and physical examination and medical decision making of this patient, discussed the same with the dictator, and agree with the dictators assessment and plan as written, documented as a scribe. Based on total visit time, I have performed more than 50% of this visit. Past Medical History Past Medical History: Coronary Artery Disease (CAD), GERD/Reflux, Hyperlipidemia, Hypertension, Osteoarthritis (OA), Rheumatoid Arthritis (RA), Thyroid Disorder Additional Past Medical History / Comment(s): anemia History of Any Multi-Drug Resistant Organisms: None Reported Past Surgical History: Joint Replacement, Orthopedic Surgery Additional Past Surgical History / Comment(s): tressa hips/knees replacements with Dr. Perez, since his jail she has spinal fusion Past Anesthesia/Blood Transfusion Reactions: No Reported Reaction Past Psychological History: No Psychological Hx Reported Smoking Status: Former smoker Past Alcohol Use History: Rare Past Drug Use History: None Reported - Past Family History Mother Family Medical History: Cancer Additional Family Medical History / Comment(s): breast cancer with mets to the brain Father Family Medical History: Congestive Heart Failure (CHF), Myocardial Infarction (SC) Medications and Allergies Home Medications Medication Instructions Recorded Confirmed Type ALPRAZolam [Xanax] 0.25 mg PO BID PRN 07/03/21 06/15/22 History Acetaminophen-Codeine 300-30mg 1 tab PO Q6H PRN 07/03/21 06/15/22 History [Tylenol w/codeine #3] Aspirin EC [Ecotrin Low Dose] 81 mg PO DAILY 07/03/21 06/15/22 History Cyclobenzaprine [Flexeril] 10 mg PO BID PRN 07/03/21 06/15/22 History Levothyroxine Sodium [Synthroid] 125 mcg PO DAILY 07/03/21 06/15/22 History Losartan [Cozaar] 50 mg PO DAILY 07/03/21 06/15/22 History Metoprolol Succinate (ER) [Toprol 50 mg PO DAILY 07/03/21 06/15/22 History XL] Omeprazole [PriLOSEC] 20 mg PO DAILY 07/03/21 06/15/22 History Sodium Bicarbonate Tab 650 mg PO BID 07/03/21 06/15/22 History Tocilizumab [Actemra] 162 mg SQ Q14D 07/03/21 06/15/22 History gemfibroziL [Lopid] 600 mg PO AC-BID 07/03/21 06/15/22 History sulfaSALAzine [Sulfasalazine] 1,000 mg PO BID 07/03/21 06/15/22 History Albuterol Inhaler [Ventolin Hfa 2 puff INHALATION RT-Q6H PRN 06/15/22 06/15/22 History Inhaler] Rosuvastatin [Crestor] 20 mg PO DAILY 06/15/22 06/15/22 History predniSONE 10 mg PO W/BRKFST 06/15/22 06/15/22 History Allergies Allergy/AdvReac Type Severity Reaction Status Date / Time No Known Allergies Allergy Verified 06/15/22 17:31 Physical Exam Vitals: Vital Signs Temp Pulse Pulse Resp BP BP Pulse Ox 06/16/22 07:25 80 06/16/22 07:16 80 06/16/22 07:00 97.4 F L 91 16 95/55 99 06/16/22 04:14 98.4 F 95 17 101/65 97 06/15/22 22:25 88 06/15/22 22:10 88 06/15/22 21:46 98.7 F 109 H 19 122/71 95 06/15/22 20:00 18 06/15/22 19:31 100 18 94/65 93 L 06/15/22 18:24 90 16 109/85 95 06/15/22 17:52 93 16 102/57 97 06/15/22 17:22 94 16 114/67 97 06/15/22 16:52 93 16 101/66 98 06/15/22 16:37 97 16 113/97 97 06/15/22 16:22 97 12 112/80 100 06/15/22 16:17 102 H 12 102/58 100 06/15/22 16:12 90 16 153/71 100 06/15/22 13:40 98.5 F 94 16 140/92 96 Intake and Output 06/15/22 06/16/22 06/16/22 22:59 06:59 14:59 Other: # Voids 0 1 Weight 77.111 kg Results CBC & Chem 7: 06/16/22 10:12 06/16/22 10:12 Thrombosis Risk Factor Assmnt - Choose All That Apply Each Factor Represents 1 point: Obesity (BMI >25) Each Risk Factor Represents 3 Points: Age 75 years or older Thrombosis Risk Factor Assessment Total Risk Factor Score: 4 Thrombosis Risk Factor Assessment Level: Moderate Risk Assessment and Plan Time with Patient: Less than 30
--- NOTE | 2022-06-16 14:38 | P.HPOR ---
History of Present Illness H&P Date: 06/16/22 This patient is a 72-year-old female with a past medical history of CAD s/p stent, hypertension, hyperlipidemia, hypothyroidism, GERD that presented to [facility] emergency department 06/15/22 via EMS with complaints of right hip pain and inability to bear weight. Patient states she was at home yesterday and bent over to pick something up off the floor, and felt a pop in her hip and feel to the ground. She was unable to get up on her own, therefore EMS was called. She was transported to [facility] emergency department. X-rays of the right hip in the emergency department revealed a dislocated right hip prosthesis. Patient has history of right total hip arthroplasty about [address] Lozano. Her right hip was reduced in the emergency department. Patient was admitted under the care of Dr. Rincon with a consult placed to internal medicine for medical management. Patient is examined bedside this morning. She states she is having no pain currently. She states this is the 3rd time her hip has dislocated, last time was about [address] Lozano is retired, although before he retired she was referred to an orthopedic surgeon at [facility] for further evaluation of her right hip. She has not seen this orthopedic surgeon recently. She overall feels well this time has no complaints or concerns. Vital signs stable. Past Medical History Past Medical History: Coronary Artery Disease (CAD), GERD/Reflux, Hyperlipidemia, Hypertension, Osteoarthritis (OA), Rheumatoid Arthritis (RA), Thyroid Disorder Additional Past Medical History / Comment(s): anemia History of Any Multi-Drug Resistant Organisms: None Reported Past Surgical History: Joint Replacement, Orthopedic Surgery Additional Past Surgical History / Comment(s): tressa hips/knees replacements with Dr. Perez, since his nursing home she has spinal fusion Past Anesthesia/Blood Transfusion Reactions: No Reported Reaction Past Psychological History: No Psychological Hx Reported Smoking Status: Former smoker Past Alcohol Use History: Rare Past Drug Use History: None Reported - Past Family History Mother Family Medical History: Cancer Additional Family Medical History / Comment(s): breast cancer with mets to the brain Father Family Medical History: Congestive Heart Failure (CHF), Myocardial Infarction (M I) Medications and Allergies Home Medications Medication Instructions Recorded Confirmed Type ALPRAZolam [Xanax] 0.25 mg PO BID PRN 07/03/21 06/15/22 History Acetaminophen-Codeine 300-30mg 1 tab PO Q6H PRN 07/03/21 06/15/22 History [Tylenol w/codeine #3] Aspirin EC [Ecotrin Low Dose] 81 mg PO DAILY 07/03/21 06/15/22 History Cyclobenzaprine [Flexeril] 10 mg PO BID PRN 07/03/21 06/15/22 History Levothyroxine Sodium [Synthroid] 125 mcg PO DAILY 07/03/21 06/15/22 History Losartan [Cozaar] 50 mg PO DAILY 07/03/21 06/15/22 History Metoprolol Succinate (ER) [Toprol 50 mg PO DAILY 07/03/21 06/15/22 History XL] Omeprazole [PriLOSEC] 20 mg PO DAILY 07/03/21 06/15/22 History Sodium Bicarbonate Tab 650 mg PO BID 07/03/21 06/15/22 History Tocilizumab [Actemra] 162 mg SQ Q14D 07/03/21 06/15/22 History gemfibroziL [Lopid] 600 mg PO AC-BID 07/03/21 06/15/22 History sulfaSALAzine [Sulfasalazine] 1,000 mg PO BID 07/03/21 06/15/22 History Albuterol Inhaler [Ventolin Hfa 2 puff INHALATION RT-Q6H PRN 06/15/22 06/15/22 History Inhaler] Rosuvastatin [Crestor] 20 mg PO DAILY 06/15/22 06/15/22 History predniSONE 10 mg PO W/BRKFST 06/15/22 06/15/22 History Allergies Allergy/AdvReac Type Severity Reaction Status Date / Time No Known Allergies Allergy Verified 06/15/22 17:31 Physical Examination On examination, the patient is sitting up in bed in no distress. She is alert and oriented 3. Her head appears normal second atraumatic. Her breathing appears nonlabored. On inspection of her bilateral upper extremities, no obvious deformities or signs of trauma. On inspection of her bilateral lower extremities, no obvious deformities or signs of trauma. On inspection of the right hip, there is a healed incision at the lateral hip consistent with a prior total hip arthroplasty. There is painless range of motion of the right hip. Motor and sensory intact is intact of the right lower extremity. Dorsalis pedis pulse easily palpable. Results Right hip x-ray 06/15/22: Anatomic reduction of right hip. - Labs Labs: Abnormal Lab Results - Last 24 Hours (Table) 06/16/22 06/16/22 Range/Units 10:12 10:12 MCV 105.6 H (80.0-100.0) fL Glucose 161 H (74-99) mg/dL H & H 06/16/22 Range/Units 10:12 Hgb 12.6 (11.4-16.0) gm/dL Hct 40.1 (34.0-46.0) % Result Diagrams: 06/16/22 10:12 06/16/22 10:12 Assessment and Plan Assessment: Recurrent right hip dislocation status-post right total hip arthroplasty 10-15 years ago at outside facility. Plan: - Patient was discussed with Dr. Rincon. No surgical intervention is recommended at this time. We will order the patient an abductor brace, to be obtained from [facility]. Once this brace is obtained, the patient will be able to discharge home tomorrow. Recommend follow-up with the patient's orthopedic surgeon at [facility] following discharge. Patient verbalizes understanding and is in agreement with this plan. - Keep abduction pillow in place while in bed until brace is obtained. Continue hip dislocation precautions.
[2022-06-16] MEDS: METOPROLOL TARTRATE 25 MG TAB PO SCH (15:54)
[2022-06-16] MEDS: FENOFIBRATE 160 MG TAB PO SCH (20:15)
[2022-06-17] MEDS: LEVOTHYROXINE 125 MCG TAB PO SCH (05:32)
[2022-06-17] MEDS: predniSONE 10 MG TAB PO SCH (07:31)
[2022-06-17] MEDS: Acetaminophen-Codeine 300-30mg TAB PO PRN ×2 (07:31→20:39)
[2022-06-17] MEDS: sulfaSALAzine 500 MG TAB PO SCH ×2 (10:58→20:38)
[2022-06-17] MEDS: ASPIRIN 81 MG PO SCH (11:00)
[2022-06-17] MEDS: PANTOPRAZOLE 40 MG TABLET PO SCH (11:00)
[2022-06-17] MEDS: METOPROLOL TARTRATE 25 MG TAB PO SCH (11:01)
[2022-06-17] MEDS: SODIUM BICARBONATE TAB 650 MG TAB PO SCH ×2 (11:01→20:39)
[2022-06-17] MEDS: ATORVASTATIN 40 MG TAB PO SCH (11:01)
[2022-06-17] MEDS: SODIUM CHLORIDE 0.9% 1,000 ML IV SCH ×2 (11:03→21:47)
--- NOTE | 2022-06-17 11:09 | P.DS ---
Providers Date of admission: 06/15/22 17:28 Expected date of discharge: 06/17/22 Attending physician: Jack Rincon Consults: 06/15/22 20:57 Consult Physician Routine Consulting Provider: Jesse Freire Reason/Comments: medical management Do you want consulting provider notified?: Yes, Notify in am Primary care physician: [facility] Course: This is a 72-year-old female with a history of recurrent dislocation of her right total hip arthroplasty. The patient presented for evaluation in the emergency room where x-rays revealed dislocation of the right total hip a rthroplasty. The right hip was successfully reduced in the emergency room. Patient is admitted to [facility] on 06/15/2022. The patient was fitted for an abductor brace prior to discharge home. Labs and vital signs are stable on day of discharge. The patient plans to follow-up with a physician she has seen previously for her right hip at [place]. On day of discharge patient's there is no significant soft tissue swelling to the hip and thigh. Patient has full foot and ankle motion without difficulty or pain. Calf is soft and nontender to palpation. Neurovascular status to the right lower extremity is intact. Patient is discharged home in good condition. Please see [facility] rec for accurate list of home medications. Patient Condition at Discharge: Stable Plan - Discharge Summary Discharge Rx Participant: No New Discharge Prescriptions: New Acetaminophen-Codeine 300-30mg [Tylenol #3] 1 - 2 tab PO Q6H PRN #30 tablet PRN Reason: Pain No Action Cyclobenzaprine [Flexeril] 10 mg PO BID PRN PRN Reason: Muscle Spasm sulfaSALAzine [Sulfasalazine] 1,000 mg PO BID Sodium Bicarbonate Tab 650 mg PO BID Omeprazole [PriLOSEC] 20 mg PO DAILY Losartan [Cozaar] 50 mg PO DAILY Acetaminophen-Codeine 300-30mg [Tylenol w/codeine #3] 1 tab PO Q6H PRN PRN Reason: Pain Rosuvastatin [Crestor] 20 mg PO DAILY Albuterol Inhaler [Ventolin Hfa Inhaler] 2 puff INHALATION RT-Q6H PRN PRN Reason: Shortness Of Breath Aspirin EC [Ecotrin Low Dose] 81 mg PO DAILY Metoprolol Succinate (ER) [Toprol XL] 50 mg PO DAILY Levothyroxine Sodium [Synthroid] 125 mcg PO DAILY gemfibroziL [Lopid] 600 mg PO AC-BID ALPRAZolam [Xanax] 0.25 mg PO BID PRN PRN Reason: Anxiety Tocilizumab [Actemra] 162 mg SQ Q14D predniSONE 10 mg PO W/BRKFST Discharge Medication List ALPRAZolam [Xanax] 0.25 mg PO BID PRN 07/03/21 [History] Acetaminophen-Codeine 300-30mg [Tylenol w/codeine #3] 1 tab PO Q6H PRN 07/03/21 [History] Aspirin EC [Ecotrin Low Dose] 81 mg PO DAILY 07/03/21 [History] Cyclobenzaprine [Flexeril] 10 mg PO BID PRN 07/03/21 [History] Levothyroxine Sodium [Synthroid] 125 mcg PO DAILY 07/03/21 [History] Losartan [Cozaar] 50 mg PO DAILY 07/03/21 [History] Metoprolol Succinate (ER) [Toprol XL] 50 mg PO DAILY 07/03/21 [History] Omeprazole [PriLOSEC] 20 mg PO DAILY 07/03/21 [History] Sodium Bicarbonate Tab 650 mg PO BID 07/03/21 [History] Tocilizumab [Actemra] 162 mg SQ Q14D 07/03/21 [History] gemfibroziL [Lopid] 600 mg PO AC-BID 07/03/21 [History] sulfaSALAzine [Sulfasalazine] 1,000 mg PO BID 07/03/21 [History] Albuterol Inhaler [Ventolin Hfa Inhaler] 2 puff INHALATION RT-Q6H PRN 06/15/22 [History] Rosuvastatin [Crestor] 20 mg PO DAILY 06/15/22 [History] predniSONE 10 mg PO W/BRKFST 06/15/22 [History] Acetaminophen-Codeine 300-30mg [Tylenol #3] 1 - 2 tab PO Q6H PRN #30 tablet 06/17/22 [Rx] Follow up Appointment(s)/Referral(s): Jesse Freire MD [Primary Care Provider] - 1-2 days Jack Rincon DO [Doctor of Osteopathic Medicine] - 2 Weeks Activity/Diet/Wound Care/Special Instructions: Maintain abductor brace and continue hip dislocation precautions. Discharge Disposition: HOME SELF-CARE
[2022-06-17] MEDS: FENOFIBRATE 160 MG TAB PO SCH (20:39)
[2022-06-18] MEDS: LEVOTHYROXINE 125 MCG TAB PO SCH (05:35)
--- NOTE | 2022-06-18 06:23 | P.PN ---
Subjective Progress Note Date: 06/17/22 This is a 72 year female who follows with Dr. Dr. Freire, medical history significant for hypertension, hyperlipidemia, hypothyroidism, gastroesophageal reflux disease, coronary artery disease states she does have a cardiac stent, arthritis, spinal fusion, former smoker with rare alcohol use. She presents with history of hip replacement surgery and states that she had bent over prior to arrival and felt her right hip become dislocated. Patient states that this is the third time happening and she was in a lot of pain brought in by EMS. She was given fentanyl. Currently she is pain free. Denies chest pain, no nausea vomiting or diarrhea. No fever or chills. She does report having some intermitte nt shortness of breath and is scheduled to see Dr Valencia outpatient next Thursday for echocardiogram. She is admitted to orthopedic services, had hip pelvic x- ray completed on arrival showing dislocation of the right hip prosthesis. Follow-up x-ray showing anatomic reduction. Patient is afebrile admission, heart rate 80s, blood pressure is in the lower side at 95/55 this morning, 99% room air. Patient is receiving Tylenol 3 for pain management. She has received IV fluids overnight, she is also on valsartan daily which we will hold as well as Toprol-XL which was held for hypotension. Will check labs. 06/17/2022 Patient is seen and evaluated in follow-up this morning with orthopedics alia swanson and no plans for surgical interventions at this time. Patient is post reduction of the right hip prosthesis and recommending outpatient follow-up with her surgeon out of [facility]. Patient is currently awaiting an abductor brace. Blood pressure currently normotensive at 112/59 and recommend continue holding losartan. Recommend continuing metoprolol and vital sign monitoring. Labs reviewed and within normal limits recommending close outpatient follow-up with primary care provider. Patient is afebrile denies chest pain or shortness of breath. Patient denies nausea or vomiting and is tolerating diet. Patient is reporting some right hip pain and will continue on Tylenol No. 3 per orthopedics. Review of systems: Constitutional: No reports of fatigue, fever, or chills Cardiovascular: No reports of chest pain or palpitations Respiratory: No reports of shortness of breath or cough GI: No reports of nausea, vomiting, or diarrhea : No reports of dysuria or retention Neurovascular: No reports of weakness or numbness All medications have been reviewed PHYSICAL EXAMINATION: GENERAL: The patient is alert and oriented x3, not in any acute distress. Well developed, well nourished. HEENT: Pupils are round and equally reacting to light. EOMI. No scleral icterus. No conjunctival pallor. Normocephalic, atraumatic. No pharyngeal erythema. No thyromegaly. CARDIOVASCULAR: S1 and S2 present. Systolic murmur. PULMONARY: Chest is clear to auscultation, no wheezing or crackles. ABDOMEN: Soft, nontender, nondistended, normoactive bowel sounds. No palpable organomegaly. MUSCULOSKELETAL: No joint swelling or deformity. EXTREMITIES: No cyanosis, clubbing, or pedal edema. NEUROLOGICAL: Gross neurological examination did not reveal any focal deficits. SKIN: No rashes. Assessment Right hip dislocation of prosthesis status post reduction with follow up xray confirming, no plan for surgical intervention awaiting a brace per orthopedics History hypertension currently blood pressure in the 100s-90s systolic will hold losartan for now History rheumatoid arthritis patient is maintained on oral prednisone daily Hypothyroidism History chronic anemia Hyperlipidemia Coronary artery disease History of spinal fusion Former smoker GI prophylaxis DVT prophylaxis Full code Plan Orthopedics ordered brace for patient Recommend continue to Hold losartan as blood pressure is currently normotensive Hold toprol xl give metoprolol 25 mg po daily starting now She will likely discharge today after receiving brace and need follow-up outpatient with [place] surgeon Thank you for this consultation and we will continue to follow during hospitalization The impression and plan of care has been dictated by Lilibeth Frazier, Nurse Practitioner as directed. Dr. Demetrius MD I have performed a history and examination and MDM of this patient, discussed the same with the dictator, and agree with the dictator's assessment and plan as written ,documented as a scribe. Based on total visit time, I have performed more than 50% of the visit. Objective - Vital Signs Vital signs: Vital Signs Temp 97.7 F 06/17/22 07:39 Pulse 75 06/17/22 07:56 Resp 18 06/17/22 07:56 BP 112/59 06/17/22 07:39 Pulse Ox 96 06/17/22 07:39 FiO2 Intake & Output 06/16/22 06/17/22 06/17/22 18:59 06:59 18:59 Intake Total 476 Balance 476 Intake: Oral 476 Other: Voiding Method Toilet # Voids 1 2 - Labs CBC & Chem 7: 06/16/22 10:12 06/16/22 10:12
[2022-06-18 07:43] VITALS: PULSE 81; RESP 18
[2022-06-18] MEDS: METOPROLOL TARTRATE 25 MG TAB PO SCH (08:06)
[2022-06-18] MEDS: ASPIRIN 81 MG PO SCH (08:06)
[2022-06-18] MEDS: ATORVASTATIN 40 MG TAB PO SCH (08:07)
[2022-06-18] MEDS: SODIUM BICARBONATE TAB 650 MG TAB PO SCH (08:08)
[2022-06-18] MEDS: PANTOPRAZOLE 40 MG TABLET PO SCH (08:08)
[2022-06-18] MEDS: sulfaSALAzine 500 MG TAB PO SCH (08:08)
[2022-06-18] MEDS: predniSONE 10 MG TAB PO SCH (08:13)
[2022-06-18] MEDS: Acetaminophen-Codeine 300-30mg TAB PO PRN (08:21)
--- NOTE | 2022-06-18 11:58 | P.PN ---
Subjective Progress Note Date: 06/18/22 Principal diagnosis: Right hip dislocation. History of total hip arthroplasty with multiple dislocations. This patient is a 72-year-old female with a past medical history of CAD s/p stent, hypertension, hyperlipidemia, hypothyroidism, GERD that presented to [facility] emergency department 06/15/22 via EMS with complaints of right hip pain and inability to bear weight. Patient states she was at home yesterday and bent over to pick something up off the floor, and felt a pop in her hip and feel to the ground. She was unable to get up on her own, therefore EMS was call ed. She was transported to [facility] emergency department. X-rays of the right hip in the emergency department revealed a dislocated right hip prosthesis. Patient has history of right total hip arthroplasty about [address] Lozano. Her right hip was reduced in the emergency department. Patient was admitted under the care of Dr. Rincon with a consult placed to internal medicine for medical management. Patient is examined bedside this morning. She states she is having no pain currently. She states this is the 3rd time her hip has dislocated, last time was about 4 [address] Lozano is retired, although before he retired she was referred to an orthopedic surgeon at [facility] for further evaluation of her right hip. She has not seen this orthopedic surgeon recently. She overall feels well this time has no complaints or concerns. Vital signs st able. 06/18/2022: Patient is stable from an orthopedic standpoint. Her brace will arrive today. Vital signs are stable. Objective - Vital Signs Vital signs: Vital Signs Temp 98.2 F 06/18/22 07:00 Pulse 81 06/18/22 07:00 Resp 18 06/18/22 08:00 BP 110/56 06/18/22 07:00 Pulse Ox 93 L 06/18/22 07:00 FiO2 Intake & Output 06/17/22 06/18/22 06/18/22 18:59 06:59 18:59 Intake Total 240 Output Total 280 Balance -280 240 Intake: Oral 240 Output: Urine 280 Other: Voiding Method Toilet Toilet Toilet # Voids 1 2 - Exam No new findings on exam. Patient is sitting up in a chair without difficulty. She has full motion to bilateral lower extremities. Neurovascular status to the lower extremities is intact. - Labs CBC & Chem 7: 06/16/22 10:12 06/16/22 10:12 Assessment and Plan (1) Recurrent dislocation, right hip Current Visit: Yes Status: Acute Code(s): M24.451 - RECURRENT DISLOCATION, RIGHT HIP SNOMED Code(s): 176934388 (2) Hip pain Current Visit: No Status: Acute Priority: Medium Code(s): M25.559 - PAIN IN UNSPECIFIED HIP SNOMED Code(s): 93547726 Plan: The patient may be discharged to home today. Please see prior discharge summary. Brace will arrive today prior to discharge.
[2022-06-18] MEDS: SODIUM CHLORIDE 0.9% 1,000 ML IV SCH (13:59)
[2022-06-18 14:45] VITALS: BP 132/78; TEMP 98.4
--- NOTE | 2022-06-18 15:27 | P.PN ---
Subjective Progress Note Date: 06/18/22 This is a 72 year female who follows with Dr. Dr. Freire, medical history significant for hypertension, hyperlipidemia, hypothyroidism, gastroesophageal reflux disease, coronary artery disease states she does have a cardiac stent, arthritis, spinal fusion, former smoker with rare alcohol use. She presents with history of hip replacement surgery and states that she had bent over prior to arrival and felt her right hip become dislocated. Patient states that this is the third time happening and she was in a lot of pain brought in by EMS. She was given fentanyl. Currently she is pain free. Denies chest pain, no nausea vomiting or diarrhea. No fever or chills. She does report having some intermitte nt shortness of breath and is scheduled to see Dr Valencia outpatient next Thursday for echocardiogram. She is admitted to orthopedic services, had hip pelvic x- ray completed on arrival showing dislocation of the right hip prosthesis. Follow-up x-ray showing anatomic reduction. Patient is afebrile admission, heart rate 80s, blood pressure is in the lower side at 95/55 this morning, 99% room air. Patient is receiving Tylenol 3 for pain management. She has received IV fluids overnight, she is also on valsartan daily which we will hold as well as Toprol-XL which was held for hypotension. Will check labs. 06/17/2022 Patient is seen and evaluated in follow-up this morning with orthopedics alia swanson and no plans for surgical interventions at this time. Patient is post reduction of the right hip prosthesis and recommending outpatient follow-up with her surgeon out of [facility]. Patient is currently awaiting an abductor brace. Blood pressure currently normotensive at 112/59 and recommend continue holding losartan. Recommend continuing metoprolol and vital sign monitoring. Labs reviewed and within normal limits recommending close outpatient follow-up with primary care provider. Patient is afebrile denies chest pain or shortness of breath. Patient denies nausea or vomiting and is tolerating diet. Patient is reporting some right hip pain and will continue on Tylenol No. 3 per orthopedics. 06/18/2022 Patient is seen and evaluated this morning continuing to wait for brace although has not received yet and evaluated by orthopedics recommending an immobilizer and follow-up outpatient after discharge once the brace has been ordered. Patient reports no acute overnight events noted and would like to go home. Patient denies chest pain or shortness of breath. Patient is tolerating diet with no reports of nausea or vomiting. Patient anticipates discharge today. Review of systems: Constitutional: No reports of fatigue, fever, or chills Cardiovascular: No reports of chest pain or palpitations Respiratory: No reports of shortness of breath or cough GI: No reports of nausea, vomiting, or diarrhea : No reports of dysuria or retention Neurovascular: No reports of weakness or numbness All medications have been reviewed PHYSICAL EXAMINATION: GENERAL: The patient is alert and oriented x3, not in any acute distress. Well developed, well nourished. HEENT: Pupils are round and equally reacting to light. EOMI. No scleral icterus. No conjunctival pallor. Normocephalic, atraumatic. No pharyngeal erythema. No thyromegaly. CARDIOVASCULAR: S1 and S2 present. Systolic murmur. PULMONARY: Chest is clear to auscultation, no wheezing or crackles. ABDOMEN: Soft, nontender, nondistended, normoactive bowel sounds. No palpable organomegaly. MUSCULOSKELETAL: No joint swelling or deformity. EXTREMITIES: No cyanosis, clubbing, or pedal edema. NEUROLOGICAL: Gross neurological examination did not reveal any focal deficits. SKIN: No rashes. Assessment: Right hip dislocation of prosthesis status post reduction with follow up xray confirming, no plan for surgical intervention awaiting a brace per orthopedics History hypertension currently blood pressure in the 100s-90s systolic will hold losartan for now History rheumatoid arthritis patient is maintained on oral prednisone daily Hypothyroidism History chronic anemia Hyperlipidemia Coronary artery disease History of spinal fusion Former smoker GI prophylaxis DVT prophylaxis Full code Plan: Orthopedics ordered brace for patient and still has yet to arrive may be able to receive outpatient and recommending knee immobilizer with outpatient follow-up Recommend continue to Hold losartan as blood pressure is currently normotensive Hold toprol xl give metoprolol 25 mg po daily starting now, prescription sent and recommend follow-up with primary care provider She will likely discharge today after receiving brace and need follow-up outpatient with [place] surgeon Thank you for this consultation and we will continue to follow during hospitalization The impression and plan of care has been dictated by Lilibeth Frazier, Nurse Practitioner as directed. Dr. Demetrius MD I have performed a history and examination and MDM of this patient, discussed the same with the dictator, and agree with the dictator's assessment and plan as written ,documented as a scribe. Based on total visit time, I have performed more than 50% of the visit. Objective - Vital Signs Vital signs: Vital Signs Temp 98.2 F 06/18/22 07:00 Pulse 81 06/18/22 07:00 Resp 18 06/18/22 08:00 BP 110/56 06/18/22 07:00 Pulse Ox 93 L 06/18/22 07:00 FiO2 Intake & Output 06/17/22 06/18/22 06/18/22 18:59 06:59 18:59 Intake Total 240 Output Total 280 Balance -280 240 Intake: Oral 240 Output: Urine 280 Other: Voiding Method Toilet Toilet Toilet # Voids 1 2 - Labs CBC & Chem 7: 06/16/22 10:12 06/16/22 10:12
== END 2022-06-18 15:00 | disposition home or self-care (01) ==
LOC: EC 13:36 → 6NMEDSUR 17:28
PROVIDERS: ADMIT Orthopaedic Surgery; ATTEND Orthopaedic Surgery
DX: T84.020A Dislocation of internal right hip prosthesis, initial encounter (principal); I25.10 Atherosclerotic heart disease of native coronary artery without angina pectoris; K21.9 Gastro-esophageal reflux disease without esophagitis; I10 Essential (primary) hypertension; E78.5 Hyperlipidemia, unspecified; E03.9 Hypothyroidism, unspecified; M06.9 Rheumatoid arthritis, unspecified; D64.9 Anemia, unspecified; Z87.891 Personal history of nicotine dependence; Z98.1 Arthrodesis status; Z95.5 Presence of coronary angioplasty implant and graft; Z96.643 Presence of artificial hip joint, bilateral; Z96.653 Presence of artificial knee joint, bilateral; Z79.52 Long term (current) use of systemic steroids; Z79.82 Long term (current) use of aspirin; Z79.890 Hormone replacement therapy; Z79.899 Other long term (current) drug therapy; Z80.3 Family history of malignant neoplasm of breast; Z82.49 Family history of ischemic heart disease and other diseases of the circulatory system; Z80.8 Family history of malignant neoplasm of other organs or systems; Y79.2 Prosthetic and other implants, materials and accessory orthopedic devices associated with adverse incidents
CPT/HCPCS: 94640 ×3; 97162; 97166; 80048; 85025; 73501; 73502; 27265; G0378 ×4; J2060; J1170; J2704; J7512 ×3; 96365; 96366; 96375; 96376; 99285

== ENCOUNTER → 2022-11-12 | Outpatient (CLI) | payer MEDICARE, BC | END | disposition home or self-care (01) | LOC: LABWHC1 15:25 | PROVIDERS: ATTEND Orthopaedic Surgery | DX: Z01.812 Encounter for preprocedural laboratory examination (principal) | CPT/HCPCS: 36415; 83036; 87070 ==

== ENCOUNTER 2023-02-27 13:20 | Emergency (ER) | payer MEDICARE, BC ==
[2023-02-27 14:06] LABS: INR 1.3 (<1.2); Partial Thromboplastin Time 26.7 sec (22.0-30.0); Prothrombin Time 13.2 sec (9.0-12.0)
[2023-02-27 14:20] LABS: ALT 20 U/L (4-34); AST 32 U/L (14-36); African American GFR (CKD) >90 (>60 ml/min/1.73 sqM); Albumin 4.3 g/dL (3.5-5.0); Alkaline Phosphatase 87 U/L (38-126); Anion Gap 14 mmol/L; Blood Urea Nitrogen 6 mg/dL (7-17); Carbon Dioxide 23 mmol/L (22-30); Chloride 102 mmol/L (98-107); Glucose 139 mg/dL (74-99); Non-African American GFR(CKD) 85 (>60 ml/min/1.73 sqM); Potassium 3.8 mmol/L (3.5-5.1); Sodium 139 mmol/L (137-145); Total Bilirubin 0.4 mg/dL (0.2-1.3); Total Protein 7.6 g/dL (6.3-8.2)
[2023-02-27 14:24] LABS: Basophils # (A) 0.1 k/uL (0-0.2); Basophils % (A) 1 %; Eosinophils # (A) 0.1 k/uL (0-0.7); Eosinophils % (A) 2 %; HCT 44.7 % (34.0-46.0); HGB 14.1 gm/dL (11.4-16.0); Hypochromasia Slight; Lymphocytes # (A) 1.5 k/uL (1.0-4.8); Lymphocytes % (A) 28 %; MCH 30.5 pg (25.0-35.0); MCHC 31.7 g/dL (31.0-37.0); MCV 96.3 fL (80.0-100.0); Mean Platelet Volume 7.3; Monocytes # (A) 0.3 k/uL (0-1.0); Monocytes % (A) 6 %; Neutrophils # (A) 3.2 k/uL (1.3-7.7); Neutrophils % (A) 61 %; Platelet Count 308 k/uL (150-450); RBC 4.64 m/uL (3.80-5.40); WBC 5.2 k/uL (3.8-10.6)
--- NOTE | 2023-02-27 16:00 | ED ---
GI Bleed HPI - General Chief complaint: GI Bleed Stated complaint: Rectal Bleeding Time Seen by Provider: 02/27/23 15:30 Source: patient, RN notes reviewed Mode of arrival: ambulatory Limitations: no limitations - History of Present Illness Initial comments: 73-year-old female presents with complaints of bright red blood per rectum for the past 2 weeks she states she's not had a bowel movement. Past week she states her last bowel movement was brown in color. She has intermittent episodes a left lower quadrant left-sided abdominal pain crampy in nature. No pain at this time however no shortness breath fevers chills sweats. She states her last colonoscopy was about 10-15 years ago. At that time was normal. She has no history of diverticular disease. No history of bowel surgeries she states. No pain with breathing no other current complaints or modifying factors - Related Data Home Medications Medication Instructions Recorded Confirmed Aspirin EC [Ecotrin Low Dose] 81 mg PO DAILY 07/03/21 02/27/23 Cyclobenzaprine [Flexeril] 10 mg PO BID PRN 07/03/21 02/27/23 Levothyroxine Sodium [Synthroid] 125 mcg PO DAILY 07/03/21 02/27/23 Losartan [Cozaar] 50 mg PO DAILY 07/03/21 02/27/23 Omeprazole [PriLOSEC] 20 mg PO DAILY 07/03/21 02/27/23 Sodium Bicarbonate Tab 650 mg PO BID 07/03/21 02/27/23 Tocilizumab [Actemra] 162 mg SQ Q14D 07/03/21 02/27/23 gemfibroziL [Lopid] 600 mg PO AC-BID 07/03/21 02/27/23 sulfaSALAzine [Sulfasalazine] 1,500 mg PO BID 07/03/21 02/27/23 Albuterol Inhaler [Ventolin Hfa 2 puff INHALATION RT-Q6H PRN 06/15/22 02/27/23 Inhaler] Rosuvastatin [Crestor] 20 mg PO HS 06/15/22 02/27/23 predniSONE 10 mg PO W/BRKFST 06/15/22 02/27/23 ALPRAZolam [Xanax] 0.25 mg PO BID PRN 02/27/23 02/27/23 Acetaminophen with Codeine 1 tab PO Q6H PRN 02/27/23 02/27/23 [Tylenol #4 Tablet] Metoprolol Succinate (ER) [Toprol 50 mg PO DAILY 02/27/23 02/27/23 Xl] Allergies Allergy/AdvReac Type Severity Reaction Status Date / Time No Known Allergies Allergy Verified 02/27/23 16:30 Review of Systems ROS Statement: Those systems with pertinent positive or pertinent negative responses have been documented in the HPI. ROS Other: All systems not noted in ROS Statement are negative. Past Medical History Past Medical History: Coronary Artery Disease (CAD), GERD/Reflux, Hyperlipidemia, Hypertension, Osteoarthritis (OA), Rheumatoid Arthritis (RA), Thyroid Disorder Additional Past Medical History / Comment(s): anemia History of Any Multi-Drug Resistant Organisms: None Reported Past Surgical History: Joint Replacement, Orthopedic Surgery Additional Past Surgical History / Comment(s): tressa hips/knees replacements with Dr. Perez, since his custodial she has spinal fusion , rt hip revision 12/04 Past Anesthesia/Blood Transfusion Reactions: No Reported Reaction Past Psychological History: No Psychological Hx Reported Smoking Status: Former smoker Past Alcohol Use History: Rare Past Drug Use History: None Reported - Past Family History Mother Family Medical History: Cancer Additional Family Medical History / Comment(s): breast cancer with mets to the brain Father Family Medical History: Congestive Heart Failure (CHF), Myocardial Infarction (PA) General Exam - General Exam Comments Initial Comments: This is a well-developed well-nourished awake alert oriented 4 female Limitations: no limitations General appearance: alert, in no apparent distress Head exam: Present: atraumatic, normocephalic, normal inspection Eye exam: Present: normal appearance, PERRL, EOMI. Absent: scleral icterus, conjunctival injection, periorbital swelling ENT exam: Present: mucous membranes dry Neck exam: Present: normal inspection. Absent: tenderness, meningismus, lymp hadenopathy Respiratory exam: Present: normal lung sounds bilaterally. Absent: respiratory distress, wheezes, rales, rhonchi, stridor Cardiovascular Exam: Present: regular rate, normal rhythm, normal heart sounds. Absent: systolic murmur, diastolic murmur, rubs, gallop, clicks GI/Abdominal exam: Present: soft, normal bowel sounds. Absent: distended, tenderness, guarding, rebound, rigid Extremities exam: Present: normal inspection, full ROM, normal capillary refill. Absent: tenderness, pedal edema, joint swelling, calf tenderness Back exam: Present: normal inspection Neurological exam: Present: alert, oriented X3, CN II-XII intact Psychiatric exam: Present: normal affect, normal mood Skin exam: Present: warm, dry, intact, normal color. Absent: rash Course Vital Signs 02/27/23 13:31 Temperature 98.3 F Pulse Rate 88 Respiratory 20 Rate Blood Pressure 135/80 O2 Sat by Pulse 99 Oximetry Medical Decision Making - Lab Data Result diagrams: 02/27/23 13:40 02/27/23 13:40 Lab Results 02/27/23 02/27/23 02/27/23 Range/Units 13:40 13:40 13:40 WBC 5.2 (3.8-10.6) k/uL RBC 4.64 (3.80-5.40) m/uL Hgb 14.1 (11.4-16.0) gm/dL Hct 44.7 (34.0-46.0) % MCV 96.3 (80.0-100.0) fL MCH 30.5 (25.0-35.0) pg MCHC 31.7 (31.0-37.0) g/dL RDW 14.0 (11.5-15.5) % Plt Count 308 (150-450) k/uL MPV 7.3 Neutrophils % 61 % Lymphocytes % 28 % Monocytes % 6 % Eosinophils % 2 % Basophils % 1 % Neutrophils # 3.2 (1.3-7.7) k/uL Lymphocytes # 1.5 (1.0-4.8) k/uL Monocytes # 0.3 (0-1.0) k/uL Eosinophils # 0.1 (0-0.7) k/uL Basophils # 0.1 (0-0.2) k/uL Hypochromasia Slight PT 13.2 H (9.0-12.0) sec INR 1.3 H (<1.2) APTT 26.7 (22.0-30.0) sec Sodium 139 (137-145) mmol/L Potassium 3.8 (3.5-5.1) mmol/L Chloride 102 (98-107) mmol/L Carbon Dioxide 23 (22-30) mmol/L Anion Gap 14 mmol/L BUN 6 L (7-17) mg/dL Creatinine 0.70 (0.52-1.04) mg/dL Est GFR (CKD-EPI)AfAm >90 (>60 ml/min/1.73 sqM) Est GFR (CKD-EPI)NonAf 85 (>60 ml/min/1.73 sqM) Glucose 139 H (74-99) mg/dL Calcium 9.0 (8.4-10.2) mg/dL Total Bilirubin 0.4 (0.2-1.3) mg/dL AST 32 (14-36) U/L ALT 20 (4-34) U/L Alkaline Phosphatase 87 (38-126) U/L Total Protein 7.6 (6.3-8.2) g/dL Albumin 4.3 (3.5-5.0) g/dL Stool Occult Blood (Negative) Blood Type Blood Type Recheck Bld Type Recheck Status Antibody Screen Spec Expiration Date 02/27/23 02/27/23 Range/Units 13:40 16:51 WBC (3.8-10.6) k/uL RBC (3.80-5.40) m/uL Hgb (11.4-16.0) gm/dL Hct (34.0-46.0) % MCV (80.0-100.0) fL MCH (25.0-35.0) pg MCHC (31.0-37.0) g/dL RDW (11.5-15.5) % Plt Count (150-450) k/uL MPV Neutrophils % % Lymphocytes % % Monocytes % % Eosinophils % % Basophils % % Neutrophils # (1.3-7.7) k/uL Lymphocytes # (1.0-4.8) k/uL Monocytes # (0-1.0) k/uL Eosinophils # (0-0.7) k/uL Basophils # (0-0.2) k/uL Hypochromasia PT (9.0-12.0) sec INR (<1.2) APTT (22.0-30.0) sec Sodium (137-145) mmol/L Potassium (3.5-5.1) mmol/L Chloride (98-107) mmol/L Carbon Dioxide (22-30) mmol/L Anion Gap mmol/L BUN (7-17) mg/dL Creatinine (0.52-1.04) mg/dL Est GFR (CKD-EPI)AfAm (>60 ml/min/1.73 sqM) Est GFR (CKD-EPI)NonAf (>60 ml/min/1.73 sqM) Glucose (74-99) mg/dL Calcium (8.4-10.2) mg/dL Total Bilirubin (0.2-1.3) mg/dL AST (14-36) U/L ALT (4-34) U/L Alkaline Phosphatase (38-126) U/L Total Protein (6.3-8.2) g/dL Albumin (3.5-5.0) g/dL Stool Occult Blood Positive H (Negative) Blood Type A Positive Blood Type Recheck No Previous Record Bld Type Recheck Status CABO Indicated Antibody Screen NEGATIVE Spec Expiration Date 03/02/2023 - 2339 - Radiology Data Interpreted by me: I did interpret the imaging studies no evidence of acute processes. CAT scan does show possible thickening of the rectal mucosa possibly indicating proctitis. Patient is asymptomatic this time I did discuss this with her and her family she'll be discharged to follow-up with her doctor in 3 days increase oral fluids that she's had trouble with bowel movements I did recommend increasing fiber also. We did discuss the lab work and imaging.Was pt. sent in by a medical professional or institution (, PA, PERSONAL COMPANION, urgent care, hospital, or halfway...) When possible be specific @ -No Did you speak to anyone other than the patient for history (EMS, parent, family, police, friend...)? What history was obtained from this source @ -Family Did you review nursing and triage notes (agree or disagree)? Why? @ -I reviewed and agree with nursing and triage notes Were old charts reviewed (outside hosp., previous admission, EMS record, old EKG, old radiological studies, urgent care reports/EKG's, halfway records)? Report findings @ -No old charts were reviewed Differential Diagnosis (chest pain, altered mental status, abdominal pain women, abdominal pain men, vaginal bleeding, weakness, fever, dyspnea, syncope, headache, dizziness, GI bleed, back pain, seizure, CVA, palpatations, mental health, musculoskeletal)? @ -not applicable EKG interpreted by me (3pts min.). @ -As above X-rays interpreted by me (1pt min.). @ -As above CT interpreted by me (1pt min.). @ -As above U/S interpreted by me (1pt. min.). @ -None done What testing was considered but not performed or refused? (CT, X-rays, U/S, labs)? Why? @ -None What meds were considered but not given or refused? Why? @ -None Did you discuss the management of the patient with other professionals (pr ofessionals i.e. , PA, PERSONAL COMPANION, lab, RT, psych nurse, high school social studies tutor, engineer operations and maintenance, teacher, chief sustainability officer, residential case manager)? Give summary @ -No Was smoking cessation discussed for >3mins.? @ -No Was critical care preformed (if so, how long)? @ -No Were there social determinants of health that impacted care today? How? (Homelessness, low income, unemployed, alcoholism, drug addiction, transport ation, low edu. Level, literacy, decrease access to med. care, long term, rehab)? @ -No Was there de-escalation of care discussed even if they declined (Discuss DNR or withdrawal of care, Hospice)? DNR status @ -No What co-morbidities impacted this encounter? (DM, HTN, Smoking, COPD, CAD, Cancer, CVA, ARF, Chemo, Hep., AIDS, mental health diagnosis, sleep apnea, morbid obesity)? @ -Coronary artery disease, GERD, hypertension, rheumatoid arthritis, thyroid disease Was patient admitted / discharged? Hospital course, mention meds given and route, prescriptions, significant lab abnormalities, going to OR and other pertinent info. @ -Patient was discharged with outpatient follow-up Undiagnosed new problem with uncertain prognosis? @ -No Drug Therapy requiring intensive monitoring for toxicity (Heparin, Nitro, Insulin, Cardizem)? @ -No Were any procedures done? @ -No Diagnosis/symptom? @ -Rectal bleeding, constipation Acute, or Chronic, or Acute on Chronic? @ -Acute Uncomplicated (without systemic symptoms) or Complicated (systemic symptoms)? @ -default Side effects of treatment? @ -[No] Exacerbation, Progression, or Severe Exacerbation? @ -[No] Poses a threat to life or bodily function? How? (Chest pain, USA, PA, pneumonia, PE, COPD, DKA, ARF, appy, cholecystitis, CVA, Diverticulitis, Homicidal, Suicidal, threat to staff... and all critical care pts) @ -[No] Disposition Clinical Impression: Rectal bleeding, Dehydration, Constipation Disposition: HOME SELF-CARE Condition: Good Instructions (If sedation given, give patient instructions): Gastrointestinal Bleeding (ED), Dehydration (ED) Is patient prescribed a controlled substance at d/c from ED?: No Referrals: Jesse Freire MD [Primary Care Provider] - 1-2 days Decision Date: 02/27/23 Decision Time: 19:00
--- NOTE | 2023-02-27 18:15 | CT ---
EXAMINATION TYPE: CT angio abdomen pelvis CT DLP: 1709.2 mGycm, Automated exposure control for dose reduction was used. DATE OF EXAM: 02/27/2023 5:43 PM COMPARISON: None CLINICAL INDICATION:Female, 73 years old with history of Abdominal pain, acute, nonlocalized, GI blee d TECHNIQUE: Multiple thin slice sub-millimeter images were obtained through the abdomen, pelvis after administration of contrast. 3-D reconstructed images and maximum intensity projection images were ob tained of the abdomen, pelvis, . CT Contrast: Contrast used:100 mL of Isovue 370 without and with IV Contrast, Oral contrast used: without Oral Contrast None FINDINGS: CTA Abdomen and pelvis: The abdominal aorta does not demonstrate aneurysmal dilatation. Atherosclero tic plaque is identified within the abdominal aorta. The origins of the superior mesenteric artery, renal arteries, inferior mesenteric artery, and celiac axis are patent. The iliac vessels are normal in morphology LOWER CHEST: No evidence of focal consolidation, pneumothorax or pleural effusion. LIVER: Unremarkable GALLBLADDER AND BILE DUCTS: Unremarkable. PANCREAS: Fatty atrophy of the pancreatic parenchyma SPLEEN: r atrophic appearing spleen measuring up to 4.3 x 1.5 cm. ADRENAL GLANDS: Unremarkable. KIDNEYS AND URETERS: No evidence of hydronephrosis. Nonobstructing 4 mm left renal calculus. No right renal calculi. Ureters are unremarkable. PELVIS BLADDER: Unremarkable REPRODUCTIVE: Unremarkable. ABDOMEN & PELVIS STOMACH AND BOWEL: Evaluation of the gastrointestinal tract demonstrates no evidence of high density hemorrhage arterial phase or pooling of blood on delayed phases. No evidence of bowel obstruction. Mo derate hiatal hernia is present. Scattered colonic diverticula present. Rectal wall appears thickened up to 9 mm. PERITONEUM: No evidence of pneumoperitoneum or free fluid. VASCULATURE: No evidence of aortic aneurysm. MUSCULOSKELETAL: No acute osseous abnormalities, bilateral hip arthroplasties which limits evaluation of the pelvis. Hardware appears intact. Fixation hardware in the lumbar spine appears intact. There is multilevel disc degeneration changes of the spine with osteophyte formation and postsurgical crowell e noted. LYMPH NODES: No gross evidence for lymphadenopathy. SOFT TISSUE/ABDOMINAL WALL: Unremarkable IMPRESSION 1. No evidence for gastrointestinal hemorrhage. There is limited evaluation of the pelvis secondary to streak artifact from hip prostheses. The rectal mann do appear circumferentially thickened, corre late for proctitis. Consider evaluation colonoscopy if not recently performed. 2. Moderate hiatal hernia. 3. Cholelithiasis. 4. Atrophic spleen. 5. Nonobstructing left renal calculus.
[2023-02-27 20:35] VITALS: BP 138/83; PULSE 79; RESP 16; TEMP 98.4
== END 2023-02-27 20:36 | disposition home or self-care (01) ==
LOC: EC 13:20
DX: K62.5 Hemorrhage of anus and rectum (principal); K59.00 Constipation, unspecified; E86.0 Dehydration; I10 Essential (primary) hypertension; I25.10 Atherosclerotic heart disease of native coronary artery without angina pectoris; K21.9 Gastro-esophageal reflux disease without esophagitis; E78.5 Hyperlipidemia, unspecified; M06.9 Rheumatoid arthritis, unspecified; E07.9 Disorder of thyroid, unspecified; Z79.890 Hormone replacement therapy; Z79.82 Long term (current) use of aspirin; Z79.899 Other long term (current) drug therapy; Z87.891 Personal history of nicotine dependence
CPT/HCPCS: 36415; 74174; 80053; 82272; 85025; 85610; 85730; 86850; 86900; 86901; 99285

== ENCOUNTER 2023-03-05 15:14 | Emergency (ER) | payer MEDICARE, BC ==
[2023-03-05] MEDS ORDERED: ONDANSETRON 4 MG/2 ML VIAL IVP STA (16:03)
[2023-03-05] MEDS ORDERED: SODIUM CHLORIDE 0.9% 500 ML 500 ML IV STA (16:03)
--- NOTE | 2023-03-05 16:09 | ED ---
GI Bleed HPI - General Chief complaint: GI Bleed Stated complaint: RECTAL BLEEDING Time Seen by Provider: 03/05/23 16:02 Source: patient, family, RN notes reviewed, old records reviewed Mode of arrival: ambulatory Limitations: no limitations - History of Present Illness Initial comments: This is a 73-year-old female to the emergency department for evaluation patient comes in for bright red blood per rectum. Patient has had 1 bright red blood per rectum prior to arrival and comes DF for evaluation. No significant abdominal pain no nausea vomiting no other complaints history of 5 days ago for similar symptoms. No blood thinners. No other significant medical history MD complaint: blood on toilet paper, blood streaked stool -: hour(s) Radiation: none Severity scale (1-10): 4 Quality: painless Consistency: constant, now resolved Improves with: none Worsens with: none Context: history of GI bleed Associated Symptoms: denies other symptoms - Related Data Home Medications Medication Instructions Recorded Confirmed Aspirin EC [Ecotrin Low Dose] 81 mg PO DAILY 07/03/21 03/05/23 Cyclobenzaprine [Flexeril] 10 mg PO BID 07/03/21 03/05/23 Levothyroxine Sodium [Synthroid] 125 mcg PO DAILY 07/03/21 03/05/23 Losartan [Cozaar] 50 mg PO DAILY 07/03/21 03/05/23 Omeprazole [PriLOSEC] 20 mg PO DAILY 07/03/21 03/05/23 Sodium Bicarbonate Tab 650 mg PO BID 07/03/21 03/05/23 Tocilizumab [Actemra] 162 mg SQ Q14D 07/03/21 03/05/23 gemfibroziL [Lopid] 600 mg PO BID 07/03/21 03/05/23 sulfaSALAzine [Sulfasalazine] 1,500 mg PO BID 07/03/21 03/05/23 Albuterol Inhaler [Ventolin Hfa 2 puff INHALATION RT-Q6H PRN 06/15/22 03/05/23 Inhaler] Rosuvastatin [Crestor] 20 mg PO HS 06/15/22 03/05/23 predniSONE 10 mg PO DAILY 06/15/22 03/05/23 ALPRAZolam [Xanax] 0.25 mg PO BID PRN 02/27/23 03/05/23 Acetaminophen with Codeine 1 tab PO QID 02/27/23 03/05/23 [Tylenol #4 Tablet] Metoprolol Succinate (ER) [Toprol 25 mg PO DAILY 02/27/23 03/05/23 Xl] metroNIDAZOLE [Flagyl] 500 mg PO TID 03/05/23 03/05/23 Allergies Allergy/AdvReac Type Severity Reaction Status Date / Time No Known Allergies Allergy Verified 03/05/23 17:49 Review of Systems ROS Statement: Those systems with pertinent positive or pertinent negative responses have been documented in the HPI. ROS Other: All systems not noted in ROS Statement are negative. Past Medical History Past Medical History: Coronary Artery Disease (CAD), GERD/Reflux, Hyperlipidemia, Hypertension, Osteoarthritis (OA), Rheumatoid Arthritis (RA), Thyroid Disorder Additional Past Medical History / Comment(s): anemia History of Any Multi-Drug Resistant Organisms: None Reported Past Surgical History: Joint Replacement, Orthopedic Surgery Additional Past Surgical History / Comment(s): tressa hips/knees replacements with Dr. Perez, since his skilled nursing she has spinal fusion , rt hip revision 12/04 Past Anesthesia/Blood Transfusion Reactions: No Reported Reaction Past Psychological History: No Psychological Hx Reported Smoking Status: Former smoker Past Alcohol Use History: Rare Past Drug Use History: None Reported - Past Family History Mother Family Medical History: Cancer Additional Family Medical History / Comment(s): breast cancer with mets to the brain Father Family Medical History: Congestive Heart Failure (CHF), Myocardial Infarction (DC) General Exam Limitations: no limitations General appearance: alert, in no apparent distress Head exam: Present: atraumatic, normocephalic, normal inspection Eye exam: Present: normal appearance, PERRL, EOMI. Absent: scleral icterus, conjunctival injection, periorbital swelling ENT exam: Present: normal exam, mucous membranes moist Neck exam: Present: normal inspection. Absent: tenderness, meningismus, lymphadenopathy Respiratory exam: Present: normal lung sounds bilaterally. Absent: respiratory distress, wheezes, rales, rhonchi, stridor Cardiovascular Exam: Present: regular rate, normal rhythm, normal heart sounds. Absent: systolic murmur, diastolic murmur, rubs, gallop, clicks GI/Abdominal exam: Present: soft, normal bowel sounds. Absent: distended, tenderness, guarding, rebound, rigid Extremities exam: Present: normal inspection, full ROM, normal capillary refill. Absent: tenderness, pedal edema, joint swelling, calf tenderness Back exam: Present: normal inspection Neurological exam: Present: alert, oriented X3, CN II-XII intact Psychiatric exam: Present: normal affect, normal mood Skin exam: Present: warm, dry, intact, normal color. Absent: rash Course Vital Signs 03/05/23 03/05/23 03/05/23 15:50 17:00 18:01 Temperature 98.4 F 97.8 F Pulse Rate 89 80 74 Respiratory 16 18 18 Rate Blood Pressure 137/78 146/77 146/84 O2 Sat by Pulse 96 98 98 Oximetry - Reevaluation(s) Reevaluation #1: 03/05/23 21:32 Medical records reviewed Reevaluation #2: 03/05/23 21:32 Patient has no bloody bowel movements here in the ER Reevaluation #3: 03/05/23 21:32 Patient informed results questions answered, follow-up with GI Reevaluation #4: 03/05/23 21:32 Was pt. sent in by a medical professional or institution? @ -no Did you speak to anyone other than the patient for history? @ -no Did you review nursing and triage notes? @ -agree Were old charts reviewed? @ -no Differential Diagnosis? @ -prior EKG interpreted by me (3pts min.)? @ -no X-rays interpreted by me (1pt min.)? @ -no CT interpreted by me (1pt min.)? @ -no U/S interpreted by me (1pt. min.)? @ -no What testing was considered but not performed? (CT, X-rays, U/S, labs)? Why? @ -no What meds were considered but not given? Why? @ -no Did you discuss the management of the patient with other professionals? @ -no Did you reconcile home meds? @ -no Was smoking cessation discussed for >3mins.? @ -no Was critical care preformed (if so, how long)? @ -no Were there social determinants of health that impacted care today? How? (Homelessness, low income, unemployed, alcoholism, drug addiction, transportation, low edu. Level, literacy, decrease access to med. care, longterm, rehab)? @ -no Was there de-escalation of care discussed even if they declined? (Discuss DNR or withdrawal of care, Hospice)? @ -no What co-morbidities impacted this encounter? (DM, HTN, Smoking, COPD, CAD, Cancer, CVA, Hep., AIDS, mental health diagnosis, sleep apnea, morbid obesity)? @ -none Was patient admitted / discharged? @ - Undiagnosed new problem with uncertain prognosis? @ -no Drug Therapy requiring intensive monitoring for toxicity (Heparin, Nitro, Insulin, Cardizem)? @ -no Were any procedures done? @ -no Diagnosis/symptom? @ -GI bleed Acute, or Chronic, or Acute on Chronic? @ -Acute Uncomplicated (without systemic symptoms) or Complicated (systemic symptoms)? @ -uncomplicated Side effects of treatment? @ -no Exacerbation, Progression, or Severe Exacerbation] @ -no Poses a threat to life or bodily function? @ -yes significant hemodynamic collapse Medical Decision Making - Medical Decision Making 89 female to the emergency department with prior blood per rectum and on toilet paper, patient has no findings here in the ER no bloody bowel movements here in the ER hemoglobin is improved from prior patient will be discharged home - Lab Data Result diagrams: 03/05/23 16:08 03/05/23 16:08 Lab Results 03/05/23 03/05/23 03/05/23 Range/Units 16:08 16:08 16:08 WBC 7.5 (3.8-10.6) k/uL RBC 4.79 (3.80-5.40) m/uL Hgb 14.4 (11.4-16.0) gm/dL Hct 46.6 H (34.0-46.0) % MCV 97.3 (80.0-100.0) fL MCH 30.0 (25.0-35.0) pg MCHC 30.8 L (31.0-37.0) g/dL RDW 14.0 (11.5-15.5) % Plt Count 318 (150-450) k/uL MPV 7.5 Neutrophils % 71 % Lymphocytes % 22 % Monocytes % 4 % Eosinophils % 0 % Basophils % 1 % Neutrophils # 5.3 (1.3-7.7) k/uL Lymphocytes # 1.7 (1.0-4.8) k/uL Monocytes # 0.3 (0-1.0) k/uL Eosinophils # 0.0 (0-0.7) k/uL Basophils # 0.0 (0-0.2) k/uL Hypochromasia Moderate APTT 22.4 (22.0-30.0) sec Sodium 137 (137-145) mmol/L Potassium 4.1 (3.5-5.1) mmol/L Chloride 103 (98-107) mmol/L Carbon Dioxide 22 (22-30) mmol/L Anion Gap 12 mmol/L BUN 5 L (7-17) mg/dL Creatinine 0.66 (0.52-1.04) mg/dL Est GFR (CKD-EPI)AfAm >90 (>60 ml/min/1.73 sqM) Est GFR (CKD-EPI)NonAf 87 (>60 ml/min/1.73 sqM) Glucose 137 H (74-99) mg/dL Lactic Ac Sepsis Rflx Plasma Lactic Acid Byron (0.7-2.0) mmol/L Calcium 9.1 (8.4-10.2) mg/dL Magnesium 2.2 (1.6-2.3) mg/dL Total Bilirubin 0.5 (0.2-1.3) mg/dL AST 27 (14-36) U/L ALT 16 (4-34) U/L Alkaline Phosphatase 101 (38-126) U/L Ammonia (<30) umol/L Troponin I (0.000-0.034) ng/mL Total Protein 7.4 (6.3-8.2) g/dL Albumin 4.3 (3.5-5.0) g/dL Lipase 97 (23-300) U/L Blood Type Blood Type Recheck Bld Type Recheck Status Antibody Screen Spec Expiration Date 03/05/23 03/05/23 03/05/23 Range/Units 16:08 16:08 16:53 WBC (3.8-10.6) k/uL RBC (3.80-5.40) m/uL Hgb (11.4-16.0) gm/dL Hct (34.0-46.0) % MCV (80.0-100.0) fL MCH (25.0-35.0) pg MCHC (31.0-37.0) g/dL RDW (11.5-15.5) % Plt Count (150-450) k/uL MPV Neutrophils % % Lymphocytes % % Monocytes % % Eosinophils % % Basophils % % Neutrophils # (1.3-7.7) k/uL Lymphocytes # (1.0-4.8) k/uL Monocytes # (0-1.0) k/uL Eosinophils # (0-0.7) k/uL Basophils # (0-0.2) k/uL Hypochromasia APTT (22.0-30.0) sec Sodium (137-145) mmol/L Potassium (3.5-5.1) mmol/L Chloride (98-107) mmol/L Carbon Dioxide (22-30) mmol/L Anion Gap mmol/L BUN (7-17) mg/dL Creatinine (0.52-1.04) mg/dL Est GFR (CKD-EPI)AfAm (>60 ml/min/1.73 sqM) Est GFR (CKD-EPI)NonAf (>60 ml/min/1.73 sqM) Glucose (74-99) mg/dL Lactic Ac Sepsis Rflx Plasma Lactic Acid Byron 2.4 H* (0.7-2.0) mmol/L Calcium (8.4-10.2) mg/dL Magnesium (1.6-2.3) mg/dL Total Bilirubin (0.2-1.3) mg/dL AST (14-36) U/L ALT (4-34) U/L Alkaline Phosphatase (38-126) U/L Ammonia <9 (<30) umol/L Troponin I <0.012 (0.000-0.034) ng/mL Total Protein (6.3-8.2) g/dL Albumin (3.5-5.0) g/dL Lipase (23-300) U/L Blood Type A Positive Blood Type Recheck A Pos Bld Type Recheck Status No Antibody Screen NEGATIVE Spec Expiration Date 03/08/2023 - 235203/05/23 Range/Units 17:12 WBC (3.8-10.6) k/uL RBC (3.80-5.40) m/uL Hgb (11.4-16.0) gm/dL Hct (34.0-46.0) % MCV (80.0-100.0) fL MCH (25.0-35.0) pg MCHC (31.0-37.0) g/dL RDW (11.5-15.5) % Plt Count (150-450) k/uL MPV Neutrophils % % Lymphocytes % % Monocytes % % Eosinophils % % Basophils % % Neutrophils # (1.3-7.7) k/uL Lymphocytes # (1.0-4.8) k/uL Monocytes # (0-1.0) k/uL Eosinophils # (0-0.7) k/uL Basophils # (0-0.2) k/uL Hypochromasia APTT (22.0-30.0) sec Sodium (137-145) mmol/L Potassium (3.5-5.1) mmol/L Chloride (98-107) mmol/L Carbon Dioxide (22-30) mmol/L Anion Gap mmol/L BUN (7-17) mg/dL Creatinine (0.52-1.04) mg/dL Est GFR (CKD-EPI)AfAm (>60 ml/min/1.73 sqM) Est GFR (CKD-EPI)NonAf (>60 ml/min/1.73 sqM) Glucose (74-99) mg/dL Lactic Ac Sepsis Rflx Y Plasma Lactic Acid Byron (0.7-2.0) mmol/L Calcium (8.4-10.2) mg/dL Magnesium (1.6-2.3) mg/dL Total Bilirubin (0.2-1.3) mg/dL AST (14-36) U/L ALT (4-34) U/L Alkaline Phosphatase (38-126) U/L Ammonia (<30) umol/L Troponin I (0.000-0.034) ng/mL Total Protein (6.3-8.2) g/dL Albumin (3.5-5.0) g/dL Lipase (23-300) U/L Blood Type Blood Type Recheck Bld Type Recheck Status Antibody Screen Spec Expiration Date Disposition Clinical Impression: Rectal bleeding, Gastrointestinal hemorrhage Disposition: HOME SELF-CARE Condition: Good Instructions (If sedation given, give patient instructions): Gastrointestinal Bleeding (ED) Is patient prescribed a controlled substance at d/c from ED?: No Referrals: Jesse Freire MD [Primary Care Provider] - 1-2 days Lizett Valencia MD [STAFF PHYSICIAN] - 1-2 days Time of Disposition: 17:50
[2023-03-05 16:56] LABS: Basophils % (A) 1 %; Eosinophils % (A) 0 %; HCT 46.6 % (34.0-46.0); HGB 14.4 gm/dL (11.4-16.0); Hypochromasia Moderate; Lymphocytes # (A) 1.7 k/uL (1.0-4.8); Lymphocytes % (A) 22 %; MCHC 30.8 g/dL (31.0-37.0); MCV 97.3 fL (80.0-100.0); Mean Platelet Volume 7.5; Monocytes # (A) 0.3 k/uL (0-1.0); Monocytes % (A) 4 %; Neutrophils # (A) 5.3 k/uL (1.3-7.7); Neutrophils % (A) 71 %; Platelet Count 318 k/uL (150-450); RBC 4.79 m/uL (3.80-5.40); WBC 7.5 k/uL (3.8-10.6)
[2023-03-05 17:12] LABS: Lactic Acid, Venous 2.4 mmol/L (0.7-2.0)
[2023-03-05 17:13] LABS: ALT 16 U/L (4-34); AST 27 U/L (14-36); African American GFR (CKD) >90 (>60 ml/min/1.73 sqM); Albumin 4.3 g/dL (3.5-5.0); Alkaline Phosphatase 101 U/L (38-126); Anion Gap 12 mmol/L; Blood Urea Nitrogen 5 mg/dL (7-17); Calcium 9.1 mg/dL (8.4-10.2); Carbon Dioxide 22 mmol/L (22-30); Chloride 103 mmol/L (98-107); Glucose 137 mg/dL (74-99); Lipase 97 U/L (23-300); Magnesium 2.2 mg/dL (1.6-2.3); Non-African American GFR(CKD) 87 (>60 ml/min/1.73 sqM); Potassium 4.1 mmol/L (3.5-5.1); Sodium 137 mmol/L (137-145); Total Bilirubin 0.5 mg/dL (0.2-1.3); Total Protein 7.4 g/dL (6.3-8.2)
[2023-03-05 17:25] VITALS: RESP 18
[2023-03-05 18:02] VITALS: BP 146/84; PULSE 74; TEMP 97.8
== END 2023-03-05 18:15 | disposition home or self-care (01) ==
LOC: EC 15:14
DX: K92.2 Gastrointestinal hemorrhage, unspecified (principal); I25.10 Atherosclerotic heart disease of native coronary artery without angina pectoris; K21.9 Gastro-esophageal reflux disease without esophagitis; E78.5 Hyperlipidemia, unspecified; I10 Essential (primary) hypertension; M19.90 Unspecified osteoarthritis, unspecified site; E07.9 Disorder of thyroid, unspecified; Z87.891 Personal history of nicotine dependence; Z79.890 Hormone replacement therapy; Z79.899 Other long term (current) drug therapy; Z79.82 Long term (current) use of aspirin; Z79.1 Long term (current) use of non-steroidal anti-inflammatories (NSAID)
CPT/HCPCS: 36415; 80053; 82140; 83605; 83690; 83735; 84484; 85025; 85730; 86850; 86900; 86901; 96360; 96374; 99284

== ENCOUNTER 2023-04-17 09:53 | Day surgery (SDC) | payer MEDICARE, BC ==
[2023-04-10 15:10] VITALS: BMI 28.2
[2023-04-17] MEDS ORDERED: LACTATED RINGERS 1,000 ML IV SCH (10:12)
[2023-04-17 10:32] VITALS: RESP 16; TEMP 97.7
[2023-04-17] MEDS ORDERED: LIDOCAINE 1% (10MG/ML) FOR IV START INTRADERMA ONE (10:32)
[2023-04-17 10:45] LABS: Glucose,Whole Blood 110 mg/dL (70-110)
[2023-04-17] MEDS ORDERED: PROPOFOL 10 MG/ML 20 ML VIAL IV ONE (10:50)
--- NOTE | 2023-04-17 11:20 | P.PCN ---
Date of Procedure: 04/17/23 Procedure(s) Performed: Brief history: Patient is a pleasant 73-year-old white female scheduled for an upper endoscopy as well as colonoscopy as a part of evaluation of intermittent dysphagia to solids and rectal bleeding for the last few months duration Procedure performed: Esophagogastroduodenoscopy with dilation Colonoscopy with snare polypectomy and biopsy Preoperative diagnosis: Intermittent dysphagia to solids Rectal bleeding Anesthesia: MAC Procedure: After informed consent was obtained from the patient was brought into the endoscopy unit and IV sedation was administered by anesthesia under continuous monitoring. Initially upper endoscopy was done. The Olympus GF 160 video endoscope was inserted inserted into the mouth and esophagus intubated without any difficulty and was gradually advanced into the stomach and duodenum and carefully examined. The bulb and second part of the duodenum appeared normal. The scope was then withdrawn into the stomach adequately insufflated with air and upon careful examination the antrum and body, cardia and fundus appeared normal. The scope was then withdrawn into the esophagus. Moderate to large size hiatal hernia noted. The GE junction was located at 30 cm to the incisors. There was a widely patent distal esophageal Schatzki's ring identified that was dilated using 18-20 mm TTS balloon in a sequential fashion for 60 seconds. The GE junction appeared regular with no erythema erosions or ulcerations. Rest of the esophagus appeared normal. Patient tolerated the procedure well. At this time the patient continued to remain sedation. Initial digital rectal examination was normal. Olympus CF 160 video colonoscope was then inserted into the rectum and gradually advanced to the cecum without any difficulty. Careful examination was performed as the scope was gradually being withdrawn. The prep was excellent. The cecum appeared normal. In the ascending colon there was a 3 mm polyp and a 2 mm polyp that was removed by cold biopsy., ascending colon, transverse colon, descending colon, appeared normal. There was active colitis involving the sigmoid colon and rectum appeared to be 5 cm from the anal verge and multiple biopsies were done from this area. There was a 1.5 cm pedunculated rectal polyp that was removed by snare polypectomy.. Retroflexion was performed in the rectum and no lesions were noted. Patient tolerated the procedure well. Impression: 1. Upper endoscopy revealed moderate to large size hiatal hernia and distal esophageal Schatzki's ring status post balloon dilation using 18-20 mm TTS balloon as described above 2. Colonoscopy revealed a)active colitis involving the rectum and sigmoid colon up to 35 cm from the anal verge status post biopsies b) 1.5 cm proximal rectal polyp status post polypectomy c) 3 mm 2 ascending colon polyp status post cold biopsy Recommendations: Findings of this examination were discussed with the patient as well as a family. She was advised to be on a clear liquid diet for lunch today follow with the biopsy results and she'll be seen in office in 2 weeks. If the biopsy results adenoma she can have a repeat colonoscopy in 3 years.
[2023-04-17 11:55] VITALS: BP 128/74; PULSE 77
== END 2023-04-17 12:36 | disposition home or self-care (01) ==
LOC: ORWHC2ENDO 09:53
PROVIDERS: ATTEND Internal Medicine Gastroenterology
DX: D12.4 Benign neoplasm of descending colon (principal); D12.8 Benign neoplasm of rectum; K52.9 Noninfective gastroenteritis and colitis, unspecified; K62.5 Hemorrhage of anus and rectum; K44.9 Diaphragmatic hernia without obstruction or gangrene; K22.2 Esophageal obstruction; I25.10 Atherosclerotic heart disease of native coronary artery without angina pectoris; E78.5 Hyperlipidemia, unspecified; E03.9 Hypothyroidism, unspecified; K21.9 Gastro-esophageal reflux disease without esophagitis; Z87.891 Personal history of nicotine dependence; Z79.899 Other long term (current) drug therapy
CPT/HCPCS: 45380; 45385; 43249; J2704; C1726; 88305

== ENCOUNTER → 2025-03-02 | Outpatient (CLI) | payer MEDICARE, BC ==
[2025-03-02 14:03] LABS: African American GFR (CKD) >90 (>60 ml/min/1.73 sqM); Blood Urea Nitrogen 18 mg/dL (7-17); Non-African American GFR(CKD) 89 (>60 ml/min/1.73 sqM)
--- NOTE | 2025-03-02 15:48 | CT ---
EXAMINATION TYPE: CT abdomen pelvis w con DATE OF EXAM: 03/02/2025 COMPARISON: CTA abdomen pelvis dated 02/27/2023 CLINICAL INDICATION: Female, 75 years old with history of R63.4 ABNORMAL WEIGHT LOSS; PHH, weight los s TECHNIQUE: Performed with Oral Contrast and with IV Contrast, patient injected with 100 mL of Isovue 300. CT DLP: [address] CTDI: mGy Automated exposure control for dose reduction was used. FINDINGS: The lung bases are clear. There are [id number] emphysematous changes in the lung bases. There i s a large hiatal hernia with a partially intrathoracic stomach. There is a single small gallstone but no gallbladder wall thickening, pericholecystic fluid or disten tion. There is no biliary ductal dilatation. There is no focal mass or organomegaly involving the liver, pancreas or adrenal glands. Marked atroph y of the spleen. There is no solid renal mass or hydronephrosis and there is homogeneous contrast enhancement of the r enal parenchyma. The caliber the abdominal aorta is normal is no retroperitoneal adenopathy or hemorrhage. The bowel loops are normal in caliber and there is no evidence of dilatation or obstruction. No infla mmatory changes are identified in the bowel wall or mesentery. There is no free intraperitoneal air or fluid. No pelvic mass, free fluid, abscess or adenopathy. There is laminectomy and fusion from L3 through S1. There are bilateral hip prostheses. There is jeramie ed degenerative disease in lower thoracic and upper lumbar spine. IMPRESSION: 1. Large hiatal hernia with partially intrathoracic stomach. 2. Stable cholelithiasis. 3. No acute changes within the abdomen or pelvis. [facility], , 03/02/2025 3:46 PM
== END | disposition home or self-care (01) ==
LOC: RADCTMAIN 12:58
PROVIDERS: ATTEND Internal Medicine Geriatric Medicine
DX: K44.9 Diaphragmatic hernia without obstruction or gangrene (principal); K80.20 Calculus of gallbladder without cholecystitis without obstruction; R63.4 Abnormal weight loss
CPT/HCPCS: 82565; 84520; 74177; 36415; Q9967